=== PATIENT | female | born 1975 | race Caucasian/White ===

== ENCOUNTER 2016-04-13 10:18 | Emergency (ER) | payer MEDICAID ==
[2016-04-13] MEDS ORDERED: ACETAMINOPHEN 325 MG TABLET PO ONE (10:31)
--- NOTE | 2016-04-13 10:32 | ER Document Report ---
ED Medical Screen (RME) - General Chief Complaint: Foot Injury Stated Complaint: FOOT PAIN Notes: Alex lara is a 40-year-old female who says that her daughter stepped on her left foot last evening that she has pain and swelling in that foot and difficulty putting weight on that foot. Otherwise she denies any numbness or tingling in her feet has full range of motion of her toes and her ankle. I have greeted and performed a rapid initial assessment of this patient. A comprehensive ED assessment and evaluation of the patient, analysis of test results and completion of the medical decision making process will be conducted by additional ED providers. TRAVEL OUTSIDE OF THE [place] IN LAST 30 DAYS: No - Related Data Allergies/Adverse Reactions: latex [Latex] Allergy (Unknown, Verified 04/13/16 10:29) Penicillins Allergy (Unknown, Verified 04/13/16 10:29) aripiprazole [From Abilify] Adverse Reaction (Verified 04/13/16 10:29) Liquid Codeine Allergy (Uncoded 04/13/16 10:29) Past Medical History - Social History Chew tobacco use (# tins/day): No Frequency of alcohol use: None Drug Abuse: None Pulmonary Medical History: Reports: Hx Asthma Neurological Medical History: Reports: Hx Seizures - as a child Renal/ Medical History: Reports: Hx Kidney Stones. Denies: Hx Peritoneal Dialysis GI Medical History: Reports: Hx Irritable Bowel Psychiatric Medical History: Reports: Hx Anxiety, Hx Bipolar Disorder, Hx Post Traumatic Stress Disorder, Hx Schizoaffective Disorder Past Surgical History: Reports: Hx Hysterectomy - Immunizations Hx Diphtheria, Pertussis, Tetanus Vaccination: No Physical Exam - Vital signs Vitals: Temp Pulse Resp BP Pulse Ox 98.4 F 110 H 18 133/91 H 100 04/13/16 10:04/13/16 10:04/13/16 10:04/13/16 10:29 04/13/16 10:29 Course - Vital Signs Vital signs: Temp Pulse Resp BP Pulse Ox 98.4 F 110 H 18 133/91 H 100 04/13/16 10:29 04/13/16 10:04/13/16 10:04/13/16 10:29 04/13/16 10:29
--- NOTE | 2016-04-13 11:42 | ER Document Report ---
ED General - General Chief Complaint: Foot Injury Stated Complaint: FOOT PAIN Mode of Arrival: Wheelchair Information source: Patient Notes: 40-year-old female presents with complaints of left foot pain since last night. Patient notes her daughter stepped on her foot. Denies any other injuries. Denies any numbness weakness. Patient has been ambulating. TRAVEL OUTSIDE OF THE [place] IN LAST 30 DAYS: No - HPI Onset: Yesterday Onset/Duration: Sudden Quality of pain: Sharp Severity: Moderate Pain Level: 2 Associated symptoms: Other Exacerbated by: Walking Relieved by: Denies Similar symptoms previously: No Recently seen / treated by doctor: No - Related Data Allergies/Adverse Reactions: latex [Latex] Allergy (Unknown, Verified 04/13/16 10:29) Penicillins Allergy (Unknown, Verified 04/13/16 10:29) aripiprazole [From Abilify] Adverse Reaction (Verified 04/13/16 10:29) Liquid Codeine Allergy (Uncoded 04/13/16 10:29) Past Medical History - Social History Smoking Status: Never Smoker Cigarette use (# per day): No Chew tobacco use (# tins/day): No Smoking Education Provided: No Frequency of alcohol use: None Drug Abuse: None Family History: None, Reviewed & Not Pertinent Patient has suicidal ideation: No Patient has homicidal ideation: No Pulmonary Medical History: Reports: Hx Asthma Neurological Medical History: Reports: Hx Seizures - as a child Renal/ Medical History: Reports: Hx Kidney Stones. Denies: Hx Peritoneal Dialysis GI Medical History: Reports: Hx Irritable Bowel Psychiatric Medical History: Reports: Hx Anxiety, Hx Bipolar Disorder, Hx Post Traumatic Stress Disorder, Hx Schizoaffective Disorder Past Surgical History: Reports: Hx Hysterectomy, Hx Oral Surgery - Immunizations Hx Diphtheria, Pertussis, Tetanus Vaccination: No Review of Systems - Review of Systems Notes: REVIEW OF SYSTEMS: CONSTITUTIONAL : Denies fever, chills, or sweats. Denies recent illness. EENT: Denies eye, ear, throat, or mouth pain or symptoms. Denies nasal or sinus congestion or discharge. Denies throat, tongue, or mouth swelling or difficulty swallowing. CARDIOVASCULAR: Denies chest pain. Denies palpitations or racing or irregular heart beat. Denies ankle edema. RESPIRATORY: Denies cough, cold, or chest congestion. Denies shortness of breath, difficulty breathing, or wheezing. GASTROINTESTINAL: Denies abdominal pain or distention. Denies nausea, vomiting , or diarrhea. Denies blood in vomitus, stools, or per rectum. Denies black, tarry stools. Denies constipation. GENITOURINARY: Denies difficulty urinating, painful urination, burning, frequency, blood in urine, or discharge. FEMALE GENITOURINARY: Denies vaginal bleeding, heavy or abnormal periods, irregular periods. Denies vaginal discharge or odor. MUSCULOSKELETAL: admits ot left foot pain SKIN: Denies rash, lesions or sores. HEMATOLOGIC : Denies easy bruising or bleeding. LYMPHATIC: Denies swollen, enlarged glands. NEUROLOGICAL: Denies confusion or altered mental status. Denies passing out or loss of consciousness. Denies dizziness or lightheadedness. Denies headache. Denies weakness or paralysis or loss of use of either side. Denies problems with gait or speech. Denies sensory loss, numbness, or tingling. Denies seizures. PSYCHIATRIC: Denies anxiety or stress. Denies depression, suicidal ideation, or homicidal ideation. ALL OTHER SYSTEMS REVIEWED AND NEGATIVE. Dictation was performed using [employer] voice recognition software PHYSICAL EXAMINATION: GENERAL: Well-appearing, well-nourished and in no acute distress. HEAD: Atraumatic, normocephalic. EYES: Pupils equal round and reactive to light, extraocular movements intact, conjunctiva are normal. ENT: Nares patent, oropharynx clear without exudates. Moist mucous membranes. NECK: Normal range of motion, supple without lymphadenopathy LUNGS: Breath sounds clear to auscultation bilaterally and equal. No wheezes rales or rhonchi. HEART: Regular rate and rhythm without murmurs ABDOMEN: Soft, nontender, nondistended abdomen. No guarding, no rebound. No masses appreciated. Female : deferred Musculoskeletal: Normal range of motion, no pitting or edema. No cyanosis. NEUROLOGICAL: Cranial nerves grossly intact. Normal speech, normal gait. Normal sensory, motor exams PSYCH: Normal mood, normal affect. SKIN: echymoisis of the left foot 4th and 5th digits at the base , pt is able ot move her digits , sensation is in tact Physical Exam - Vital signs Vitals: Temp Pulse Resp BP Pulse Ox 98.4 F 110 H 18 133/91 H 100 04/13/16 10:29 04/13/16 10:29 04/13/16 10:29 04/13/16 10:29 04/13/16 10:29 Course - Re-evaluation Re-evalutation: 04/13/16 12:07 xray consistent withf racture, report and image given to patient, splint and crutches ordered pt otherwise stable for home, will [facility] ortho follow up in 1 week After performing a Medical Screening Examination, I estimate there is LOW risk for INTRACRANIAL HEMORRHAGE, UNSTABLE SPINE FRACTURE, CENTRAL CORD SYNDROME, CAUDA EQUINA, THORACIC AORTIC DISSECTION, PNEUMOTHORAX, PERFORATED BOWEL, RUPTURED ABDOMINAL AORTIC ANEURYSM, ACUTE TENDON RUPTURE, COMPARTMENT SYNDROME, or OPEN FRACTURE, thus I consider the discharge disposition reasonable. Also, there is no evidence or peritonitis, sepsis, or toxicity. The patient and I have discussed the diagnosis and risks, and we agree with discharging home to follow-up with their primary doctor with the understanding that symptoms and presentations can change. We also discussed returning to the Emergency Department immediately if new or worsening symptoms occur. We have discussed the symptoms which are most concerning (e.g., bloody stool, fever, changing or worsening pain, vomiting) that necessitate immediate return. - Vital Signs Vital signs: Temp Pulse Resp BP Pulse Ox 98.4 F 85 18 137/91 H 100 04/13/16 10:29 04/13/16 11:47 04/13/16 10:04/13/16 11:47 04/13/16 10:29 - Diagnostic Test Radiology reviewed: Image reviewed, Reports reviewed Discharge - Discharge Clinical Impression: Left foot pain Metatarsal bone fracture Qualifiers: Encounter type: initial encounter Metatarsal bone: fifth Fracture type: closed Fracture alignment: displaced Laterality: left Qualified Code(s): S92.352A - Displaced fracture of fifth metatarsal bone, left foot, initial encounter for closed fracture Condition: Stable Disposition: HOME, SELF-CARE Instructions: Foot Fracture ([facility]) Prescriptions: Oxycodone HCl/Acetaminophen [Percocet 5-325 mg Tablet] 1 - 2 tab PO Q4H PRN #15 tablet PRN Reason: Referrals: DEE STYLES MD [ACTIVE STAFF] - 04/21/16
[2016-04-13 11:48] VITALS: BP 137/91
== END 2016-04-13 12:24 | disposition home or self-care (01) ==
LOC: ER 10:18
DX: S92.352A Displaced fracture of fifth metatarsal bone, left foot, initial encounter for closed fracture (principal); M79.672 Pain in left foot; X58.XXXA Exposure to other specified factors, initial encounter
CPT/HCPCS: 99283; 73630; J3490

== ENCOUNTER 2016-05-12 06:49 | Emergency (ER) | payer MEDICAID ==
[2016-05-12] MEDS ORDERED: NORMAL SALINE 1000 ML 1,000 ML IV ONE ×2 (07:28→07:34)
[2016-05-12] MEDS ORDERED: ONDANSETRON HCL INJ/PF 4 MG/2 ML SDV IV ONE (07:29)
--- NOTE | 2016-05-12 07:33 | ER Document Report ---
ED Flu Like - General Chief Complaint: Flu Symptoms Stated Complaint: FLU LIKE SYMPTOMS Time seen by provider: 07:28 Mode of Arrival: Ambulatory Information source: Patient Notes: 40-year-old female presents to ED for nausea and vomiting for the last 3 days no stool except for very small miniscule stool yesterday insomnia body aches sweats and chills runny nose and cough. TRAVEL OUTSIDE OF THE [place] IN LAST 30 DAYS: No - HPI Onset: Other - 3 days Timing/Duration: Persistent Quality of pain: Cramping Severity: Severe Pain Level: 5 Associated symptoms: Body/muscle aches, Chills, Nonproductive cough, Fever, Nausea, Vomiting, Rhinnorhea, Sinus pain/drainage Similar symptoms previously: No Recently seen / treated by doctor: No - Related Data Allergies/Adverse Reactions: latex [Latex] Allergy (Unknown, Verified 04/13/16 10:29) Penicillins Allergy (Unknown, Verified 04/13/16 10:29) aripiprazole [From Abilify] Adverse Reaction (Verified 04/13/16 10:29) Liquid Codeine Allergy (Uncoded 04/13/16 10:29) Past Medical History - General Information source: Patient - Social History Smoking Status: Former Smoker - States she just quit a week ago this is 2016 Cigarette use (# per day): No Chew tobacco use (# tins/day): No Smoking Education Provided: No Frequency of alcohol use: Rare Drug Abuse: None, Marijuana Occupation: no Lives with: Spouse/Significant other Family History: Arthritis, CAD, COPD, CVA, DM, Hyperlipidemia, Hypertension, Malignancy Patient has suicidal ideation: No Patient has homicidal ideation: No - Past Medical History Cardiac Medical History: Reports: None Pulmonary Medical History: Reports: Hx Asthma EENT Medical History: Reports: None Neurological Medical History: Reports: Hx Seizures - as a child Endocrine Medical History: Reports: None Renal/ Medical History: Reports: Hx Kidney Stones, Hx Ovarian Cysts Malignancy Medical History: Reports: Hx Cervical Cancer - Precervical cancer GI Medical History: Reports: Hx Irritable Bowel Musculoskeltal Medical History: Reports Hx Arthritis, Reports Hx Musculoskeletal Trauma Skin Medical History: Reports None Psychiatric Medical History: Reports: Hx Anxiety, Hx Attention Deficit Hyperactivity Disorder, Hx Bipolar Disorder, Hx Post Traumatic Stress Disorder, Hx Schizoaffective Disorder Traumatic Medical History: Reports: Hx Fractures - Left foot Infectious Medical History: Reports: None Past Surgical History: Reports: Hx Adenoidectomy, Hx Section, Hx Hysterectomy - Partial, Hx Myringotomy, Hx Oral Surgery, Hx Tonsillectomy - Immunizations Hx Diphtheria, Pertussis, Tetanus Vaccination: No Review of Systems - Review of Systems Constitutional: Chills, Recent illness EENT: Nose discharge, Sinus discharge Cardiovascular: No symptoms reported Respiratory: Cough Gastrointestinal: Abdominal pain, Nausea, Vomiting, Constipation Genitourinary: No symptoms reported Female Genitourinary: No symptoms reported Musculoskeletal: Muscle pain Skin: No symptoms reported Hematologic/Lymphatic: No symptoms reported Neurological/Psychological: No symptoms reported -: Yes All other systems reviewed and negative Physical Exam - Vital signs Vitals: Temp Pulse Resp BP Pulse Ox 97.6 F 72 20 131/88 H 100 05/12/16 06:55 05/12/16 06:55 05/12/16 06:55 05/12/16 06:55 05/12/16 06:55 Interpretation: Normal - General General appearance: Appears well, Alert - HEENT Head: Normocephalic, Atraumatic Eyes: Normal Pupils: PERRL - Respiratory Respiratory status: No respiratory distress Chest status: Nontender Breath sounds: Normal Chest palpation: Normal - Cardiovascular Rhythm: Regular Heart sounds: Normal auscultation Murmur: No - Abdominal Inspection: Normal Distension: No distension Bowel sounds: Normal Tenderness: Tender - Generalized Organomegaly: No organomegaly - Back Back: Normal, Nontender - Extremities General upper extremity: Normal inspection, Nontender, Normal color, Normal ROM , Normal temperature General lower extremity: Normal inspection, Nontender, Normal color, Normal ROM , Normal temperature, Normal weight bearing. No: Joyce's sign - Neurological Neuro grossly intact: Yes Cognition: Normal Orientation: AAOx4 U[place]do Coma Scale Eye Opening: Spontaneous [place] Coma Scale Verbal: Oriented [place] Coma Scale Motor: Obeys Commands Uvaldo Coma Scale Total: 15 Speech: Normal Motor strength normal: LUE, RUE, LLE, RLE Sensory: Normal - Psychological Associated symptoms: Normal affect, Normal mood - Skin Skin Temperature: Warm Skin Moisture: Dry Skin Color: Normal Course - Re-evaluation Re-evalutation: 05/12/16 09:59 Patient taking fluids and food well. Has been taken water and soda and eating crackers. Assessment consistent with gastrointestinal murmurs we'll discharge home on Zofran. Patient was treated with mag citrate for her constipation before discharge. 05/12/16 10:[address] Pleitez concerning the abdominal pain that has not been relieved he stated was okay to go ahead and discharge the patient. - Vital Signs Vital signs: Temp Pulse Resp BP Pulse Ox 99.1 F 81 20 107/56 L 96 05/12/16 11:28 05/12/16 11:28 05/12/16 11:28 05/12/16 11:28 05/12/16 11:28 - Laboratory Result Diagrams: 05/12/16 07:48 05/12/16 07:48 Laboratory results interpreted by me: 05/12/16 05/12/16 05/12/16 07:48 07:48 07:48 WBC 13.2 H MCV 79 L MCH 26.4 L RDW 14.1 H Seg Neutrophils % 86.4 H Lymphocytes % 7.9 L Absolute Neutrophils 11.4 H Glucose 129 H Calcium 10.7 H Urine Protein 30 H Urine Ketones 20 H Urine Ascorbic Acid 40 H Discharge - Discharge Clinical Impression: Nausea & vomiting Qualifiers: Vomiting type: unspecified Vomiting Intractability: non-intractable Qualified Code(s): R11.2 - Nausea with vomiting, unspecified Abdominal pain Qualifiers: Abdominal location: generalized Qualified Code(s): R10.84 - Generalized abdominal pain Condition: Stable Disposition: HOME, SELF-CARE Instructions: Family Physicians / Practices Additional Instructions: ABDOMINAL PAIN: There are many causes of abdominal pain. Pain can mean a serious problem requiring surgery (such as appendicitis). It can also be an innocent problem that goes away on its own (such as a viral infection). Often, time must pass to determine the cause of pain. The physician does not feel that hospitalization is necessary, at present. Things may change within the next 24 hours. Call the doctor or come back for re- examination if any problems occur, such as: (1) Pain that becomes more severe, steady, or becomes concentrated in one specific area. Also, pain that is more severe with movement or coughing. (2) Vomiting that persists or becomes more frequent. (3) Blood in the vomitus, urine, or bowel movements. Blood in the stool may have a tarry or black appearance. (4) Shaking chills or fever greater than 100 degrees F. (5) The abdomen becomes more distended or swollen. (6) Bowel movements cease. (7) Failure to improve as expected. NORMAL EXAM AND WORKUP: At this time, your examination and workup show no significant abnormality. No significant abnormal physical findings are noted. All laboratory, EKG, and imaging (x-ray, CT scans, ultrasound) studies that were ordered show no significant abnormality. Although your examination and all studies that were ordered showed no significant abnormal finding, there are no examinations and no studies that are 100% accurate. There is always the possibility that some abnormality could exist and not be detected with physical examination or within the limits and capabilities of laboratory and other studies. You should return or follow up as you were instructed on your visit today for further evaluation if your symptoms do not resolve. ANT[place]AUSEA MEDICATION: You have been given a medication to suppress nausea and vomiting. This type of medication can be given as a shot, pill, or suppository. It will usually last for many hours. Pills and shots usually last six to eight hours, suppositories last about 12 hours. For the typical illness, only one or two doses of the medication may be necessary. Mild lightheadedness may occur. This type of medicine can cause drowsiness. Do not drive or operate dangerous machinery while under its influence. Do not mix with alcohol. See your doctor at once if you have muscle spasms or tightness, or uncontrollable motions (particularly of the neck, mouth, or jaw). Persistent vomiting or severe lightheadedness should also be evaluated by the physician. CONSTIPATION: Constipation is a common problem. It is especially likely as you get older. Constipation is a common cause of abdominal pain, but sometimes causes no symptoms at all. Causes of constipation include certain medications, dehydration, diets, inactivity, and low-fiber intake. Rarely, it can be a symptom of underlying disease. The physician has evaluated you for this. Avoid constipation by eating a diet high in fiber, fruits, and vegetables. Drink plenty of liquids. Get regular exercise. If possible, avoid constipating medicines like narcotic pain medication. Some vitamin tablets can cause constipation. Stool softeners may be needed for difficult cases. An excellent stool softener is Konsyl which is available at [employer], and [employer]. Just add a teaspoon to a glass of pineapple or orange juice daily or twice a day if needed. Laxatives are useful for occasional constipation. You should use them only when necessary. Too-frequent use can make your bowels dependent on them. Some over the counter laxatives available without prescription are: Milk of Magnesia, 1-2 tablespoons twice a day Dulcolax, 5 mg pill or 10 mg suppository. Citrate of Magnesia, 4-5 ounces a day for a day or two For acute constipation, Fleet's Enemas and Dulcolax suppositories are helpful. Chronic, long term care social worker use of laxatives or enemas is not a good idea. Your bowel may become dependant on them. You do not need to have a bowel movement every day. Many people do fine with a bowel movement every three or four days. You should call your doctor or return for re-evaluation if you pass blood in the stool, or if you develop fever or increasing abdominal pain. BULK LAXATIVES: Bulk laxatives make the stool softer and bulkier. They're useful for preventing constipation. You can choose between psyllium, methylcellulose, and polycarbophil. They are available without a prescription. Psyllium brand names include Konsyl, Metamucil, Perdiem, Effer-Syllium and Hydrocil. It's available as powder, flavored drink powder, or chewable. The usual dose of psyllium powder is one heaping teaspoon in water each morning, increasing to twice a day if needed. [place] juice can disguise the slightly grainy texture. Methylcellulose is marketed as Citrucel and other brands. The average dose is two grams in a cup of water one to three times a day. Polycarbophil is marketed as Fiber-Con. Take two tablets with a cup of water one to three times a day. LAXATIVE: A laxative agent has been prescribed for your condition. This should result in passage of stool within 12 hours. Some mild intestinal cramping is common as the hard stool begins to move. You may have loose or runny stools for a short time. Contact your doctor if there is severe cramping, vomiting, or passage of blood. Return for further care if this medicine fails to improve your condition. FOLLOW-UP CARE: If you have been referred to a physician for follow-up care, call the physician s office for an appointment as you were instructed or within the next two days. If you experience worsening or a significant change in your symptoms, notify the physician immediately or return to the Emergency Department at any time for re-evaluation. Prescriptions: Ondansetron [Zofran Odt 4 mg Tablet] 1 tab PO Q6H #15 tab.rapdis Forms: Elevated Blood Pressure, Return to Work
[2016-05-12 08:01] LABS: ABSOLUTE MONOCYTES (AUTO) 0.7 10^3/uL (0.1-1.4); ABSOLUTE NEUT (AUTO) 11.4 10^3/uL (1.7-8.2); BASOPHILS % (AUTO) 0.4 % (0-2); EOSINOPHILS % (AUTO) 0.1 % (0-6); HEMATOCRIT 41.6 % (36.0-47.0); HEMOGLOBIN 13.9 g/dL (12.0-15.5); HGB HCT DIFFERENCE 0.1; LYMPHOCYTES % (AUTO) 7.9 % (13-45); MEAN CORPUSCULAR HEMOGLOBIN 26.4 pg (27.0-33.4); MEAN CORPUSCULAR HGB CONC 33.4 g/dL (32.0-36.0); MEAN CORPUSCULAR VOLUME 79 fl (80-97); MONOCYTES % (AUTO) 5.2 % (3-13); RED BLOOD COUNT 5.25 10^6/uL (3.72-5.28); RED CELL DISTRIBUTION WIDTH 14.1 % (11.5-14.0); SEGMENTED NEUTROPHILS % (AUTO) 86.4 % (42-78); WHITE BLOOD COUNT 13.2 10^3/uL (4.0-10.5)
[2016-05-12 08:15] LABS: APPEARANCE,URINE SLIGHTLY-CLOUDY; BILIRUBIN,URINE NEGATIVE (NEGATIVE); GLUCOSE, URINE NEGATIVE (NEGATIVE); KETONES,URINE 20 mg/dL (NEGATIVE); LEUKOCYTE ESTERASE,URINE NEGATIVE (NEGATIVE); NITRITE,URINE NEGATIVE (NEGATIVE); PROTEIN,URINE 30 mg/dL (NEGATIVE); URINE SPECIFIC GRAVITY 1.028; UROBILINOGEN,URINE NEGATIVE mg/dL (<2.0)
[2016-05-12 08:23] LABS: ALANINE AMINOTRANSFERASE 36 U/L (9-52); ALBUMIN 4.9 g/dL (3.5-5.0); ALKALINE PHOSPHATASE 112 U/L (38-126); ANION GAP 16 (5-19); ASPARTATE AMINO TRANSFERASE 28 U/L (14-36); BILIRUBIN,TOTAL 0.6 mg/dL (0.2-1.3); BLOOD UREA NITROGEN 11 mg/dL (7-20); CALCIUM 10.7 mg/dL (8.4-10.2); CARBON DIOXIDE 25 mmol/L (22-30); CHLORIDE 102 mmol/L (98-107); CREATININE RESULT 0.63 mg/dL (0.52-1.25); GLUCOSE 129 mg/dL (75-110); POTASSIUM 4.1 mmol/L (3.6-5.0)
[2016-05-12] MEDS ORDERED: PROCHLORPERAZINE EDISYLATE INJ 10 MG/2 ML VIAL IV ONE (08:39)
[2016-05-12] MEDS ORDERED: DIPHENHYDRAMINE HCL 50 MG/ML VIAL IV ONE (08:39)
[2016-05-12] MEDS ORDERED: MAGNESIUM CITRATE 296 ML BOTTLE PO ONE (10:05)
[2016-05-12 11:29] VITALS: BP 107/56
== END 2016-05-12 11:29 | disposition home or self-care (01) ==
LOC: ER 06:49
DX: R11.2 Nausea with vomiting, unspecified (principal); R10.84 Generalized abdominal pain; M79.1 Myalgia; R50.9 Fever, unspecified; Z91.040 Latex allergy status; Z88.0 Allergy status to penicillin; Z87.891 Personal history of nicotine dependence; Z87.442 Personal history of urinary calculi; Z85.41 Personal history of malignant neoplasm of cervix uteri; Z90.710 Acquired absence of both cervix and uterus
CPT/HCPCS: 99283; 96361; 96374; 96375; 36415; 84703; 85025; 80053; 81001; 87804; J3490; J1200; J0780; J2405; J7030

== ENCOUNTER 2017-02-14 04:11 | Emergency (ER) | payer MEDICAID ==
[2017-02-14] MEDS ORDERED: DEXAMETHASONE SOD PHOS INJ 10 MG/1 ML VIAL IM ONE (04:56)
[2017-02-14] MEDS ORDERED: DIAZEPAM 5 MG TABLET PO ONE (04:56)
[2017-02-14] MEDS ORDERED: KETOROLAC TROMETHAMINE INJ/PF 30 MG/1 ML SDV IM ONE (04:56)
[2017-02-14] MEDS ORDERED: ONDANSETRON HCL 8 MG TABLET PO ONE (04:56)
--- NOTE | 2017-02-14 05:01 | ER Document Report ---
HPI - HPI Pain Level: 5 Notes: Patient is a 41-year-old female with a history of chronic back pain, scoliosis who presents ED complaining of acute exacerbation of her low back pain without any known injury. Patient states that she was evaluated by her primary care doctor today who sent her home with a prescription for Flexeril, but she was unable to fill it. Patient states that the pain is primarily to the lower back , but radiates up the right side of her back up towards her neck. Patient states that when the pain gets to its worse she develops nausea and vomiting. She is otherwise eating and drinking without difficulties. She is still urinating normally and having normal bowel movements. Patient states that her back pain feels like muscle spasming as well. Patient denies any procedures or injections into her back. She denies any other significant past medical history including diabetes. Patient denies any smoking or IV drug use. Denies any headache, fever, neck pain, URI, sore throat, chest pain, palpitations, syncope, cough, shortness of breath, wheeze, dyspnea, abdominal pain, diarrhea, urinary retention, dysuria, hematuria, loss of control of bowel or bladder, numbness/tingling, saddle anesthesia, muscle paralysis/weakness, or rash. - ROS Notes: REVIEW OF SYSTEMS: CONSTITUTIONAL : Denies fever, chills, or sweats. Denies recent illness. EENT: Denies eye, ear, throat, or mouth pain or symptoms. Denies nasal or sinus congestion or discharge. Denies throat, tongue, or mouth swelling or difficulty swallowing. CARDIOVASCULAR: Denies chest pain. Denies palpitations or racing or irregular heart beat. Denies ankle edema. RESPIRATORY: Denies cough, cold, or chest congestion. Denies shortness of breath, difficulty breathing, or wheezing. GASTROINTESTINAL: Denies abdominal pain or distention. see hpi. Denies blood in vomitus, stools, or per rectum. Denies black, tarry stools. Denies constipation. GENITOURINARY: Denies difficulty urinating, painful urination, burning, frequency, blood in urine, or discharge. MUSCULOSKELETAL: see hpi SKIN: Denies rash, lesions or sores. NEUROLOGICAL: Denies confusion or altered mental status. Denies passing out or loss of consciousness. Denies dizziness or lightheadedness. Denies headache. Denies weakness or paralysis or loss of use of either side. Denies problems with gait or speech. Denies sensory loss, numbness, or tingling. Denies seizures. PSYCHIATRIC: Denies anxiety or stress. Denies depression, suicidal ideation, or homicidal ideation. ALL OTHER SYSTEMS REVIEWED AND NEGATIVE. Dictation was performed using [employer] voice recognition software - REPRODUCTIVE Reproductive: DENIES: : Past Medical History - Social History Smoking Status: Never Smoker Family History: Arthritis, CAD, COPD, CVA, DM, Hyperlipidemia, Hypertension, Malignancy Pulmonary Medical History: Reports: Hx Asthma Neurological Medical History: Reports: Hx Seizures - as a child Renal/ Medical History: Reports: Hx Kidney Stones, Hx Ovarian Cysts. Denies: Hx Peritoneal Dialysis Malignancy Medical History: Reports: Hx Cervical Cancer - Precervical cancer GI Medical History: Reports: Hx Irritable Bowel Musculoskeltal Medical History: Reports Hx Arthritis, Reports Hx Musculoskeletal Trauma Psychiatric Medical History: Reports: Hx Anxiety, Hx Attention Deficit Hyperactivity Disorder, Hx Bipolar Disorder, Hx Post Traumatic Stress Disorder, Hx Schizoaffective Disorder Traumatic Medical History: Reports: Hx Fractures - Left foot Past Surgical History: Reports: Hx Adenoidectomy, Hx Section, Hx Hysterectomy - Partial, Hx Myringotomy, Hx Oral Surgery, Hx Tonsillectomy - Immunizations Hx Diphtheria, Pertussis, Tetanus Vaccination: No Vertical Provider Document - CONSTITUTIONAL Agree With Documented VS: Yes Notes: PHYSICAL EXAMINATION: GENERAL: Well-appearing, well-nourished and in no acute distress. A&Ox4 NECK: Normal range of motion, supple without lymphadenopathy. No rigidity. No midline tenderness. LUNGS: Breath sounds clear to auscultation bilaterally and equal. No wheezes rales or rhonchi. HEART: Regular rate and rhythm without murmurs, rubs, gallops. ABDOMEN: Soft, nontender, nondistended abdomen. No guarding, no rebound. No masses appreciated. Normal bowel sounds present. No CVA tenderness bilaterally. No pulsatile mass. Musculoskeletal: LE's b/l: FROM to passive/active. Strength 5+/5. No deficits noted. No bony tenderness of extremities. Back: LROM to passive/active to flexion. Strength 5+/5. No vertebral point tenderness, stepoffs, erythema, or deformities. No other bony tenderness or ecchymosis. SLR negative b/l. + tenderness to the L and T-paraspinal mm and rt SI jt. Extremities: No cyanosis, clubbing, or edema b/l. Peripheral pulses 2+. Capillary refill less than 2 seconds. NEUROLOGICAL: Normal speech, ataxic gait. Normal sensory, motor exams. Reflexes 2+ b/l. PSYCH: Normal mood, normal affect. SKIN: Warm, Dry, normal turgor, no rashes or lesions noted. - INFECTION CONTROL TRAVEL OUTSIDE OF THE [place] IN LAST 30 DAYS: No - RESPIRATORY O2 Sat by Pulse Oximetry: 100 Course - Re-evaluation Re-evalutation: 02/14/17 05:01 Patient is an afebrile, well-hydrated, 41-year-old female who presents the ED with acute exacerbation of chronic back pain, suspect back strain and muscle spasming. Vitals are stable. PE is otherwise unremarkable for any focal neurological deficits. No labs or imaging warranted at this time. Patient reports already having a workup performed with her primary care provider yesterday that was relatively unremarkable. Low suspicion for any meningitis, fracture, expanding/ruptured AAA, cauda equina syndrome, epidural mass lesion/ abscess, herniated disc causing severe spinal stenosis, or other systemic infection at this time. Patient is aware that his condition can change from initial presentation and that he needs monitor symptoms closely for any acute changes. Toradol 30 mg, Decadron 10 mg, and Valium 5 mg given today for symptoms. I will send her home with a prescription for Zofran. Recommend patient fill her prescription for her Flexeril. Conservative measures otherwise for symptoms. Recheck with your PCM this week. Consider consult orthopedics/physical therapy for ongoing/worsening symptoms. Return to the ED with any worsening/concerning symptoms otherwise as reviewed in discharge. Patient is in agreement. - Vital Signs Vital signs: Temp Pulse Resp BP Pulse Ox 97.9 F 78 18 144/91 H 100 02/14/17 04:21 02/14/17 04:21 02/14/17 04:21 02/14/17 04:21 02/14/17 04:21 Discharge - Discharge Clinical Impression: Low back strain Qualifiers: Encounter type: initial encounter Qualified Code(s): S39.012A - Strain of muscle, fascia and tendon of lower back, initial encounter Condition: Stable Disposition: HOME, SELF-CARE Instructions: Low Back Pain ([facility]), Muscle Strain ([facility]), Warm Packs ([facility]), Ice Packs ([facility]), Stretching Exercises for the Back ([facility]), Antinausea Medication ([facility] ) Additional Instructions: Rest, Ice Tylenol/ibuprofen as needed Light stretches daily Strength exercises as able Moist heat and massage may help F/u with your PCP in this week for a recheck Consider consult(s) with Orthopedics/physical therapy for ongoing/worsening symptoms Return to the ED with any worsening symptoms and/or development of fever, headache, chest pain, palpitations, syncope, shortness of breath, trouble breathing, abdominal pain, n/v/d, blood in stool/urine, loss of control of bowel /bladder, urinary retention, muscle weakness/paralysis, saddle anesthesia, numbness/tingling, or other worsening symptoms that are concerning to you. Prescriptions: Ondansetron [Zofran Odt 4 mg Tablet] 1 - 2 tab PO Q4H PRN #15 tab.rapdis PRN Reason: For Nausea/Vomiting Forms: Elevated Blood Pressure Referrals: [facility] [Provider Group] - Follow up as needed SUELLEN OLMEDO PA-C [PHYSICIAN CURRICULUM ASSISTANT] - 02/16/17
[2017-02-14 06:00] VITALS: BP 120/78
== END 2017-02-14 05:59 | disposition home or self-care (01) ==
LOC: ER 04:11
DX: S39.012A Strain of muscle, fascia and tendon of lower back, initial encounter (principal); M54.5 Low back pain; M54.9 Dorsalgia, unspecified; G89.29 Other chronic pain; X58.XXXA Exposure to other specified factors, initial encounter
CPT/HCPCS: 99283; 96372; 96374; J3490; J1885; S0119; J1100

== ENCOUNTER 2017-08-12 06:37 | Emergency (ER) | payer MEDICAID ==
[2017-08-12 06:44] VITALS: BP 124/76
[2017-08-12] MEDS ORDERED: PREDNISONE 20 MG TABLET PO ONE (06:51)
[2017-08-12] MEDS ORDERED: FAMOTIDINE 20 MG TABLET PO ONE (06:51)
--- NOTE | 2017-08-12 06:52 | ER Document Report ---
ED General - General Chief Complaint: Allergic Reaction Stated Complaint: EYE SWELLING Time Seen by Provider: 08/12/17 06:44 Mode of Arrival: Ambulatory Information source: Patient Notes: 41-year-old female presents with complaints of facial swelling itching. Patient notes she was doing yard work felt something sting her 2 days ago that the area of redness has since enlarged. Patient has taken Benadryl with no improvement of symptoms. She denies any fevers or chills she denies any pain she denies any warmth to touch TRAVEL OUTSIDE OF THE [place] IN LAST 30 DAYS: No - HPI Onset: Other - 2 day duration Onset/Duration: Worse Quality of pain: No pain Severity: Mild Pain Level: Denies Associated symptoms: Other - Itching Exacerbated by: Denies Relieved by: Denies Similar symptoms previously: No Recently seen / treated by doctor: No - Related Data Allergies/Adverse Reactions: latex [Latex] Allergy (Unknown, Verified 08/12/17 06:38) Penicillins Allergy (Unknown, Verified 08/12/17 06:38) aripiprazole [From Abilify] Adverse Reaction (Verified 08/12/17 06:38) Liquid Codeine Allergy (Uncoded 08/12/17 06:38) Past Medical History - Social History Smoking Status: Unknown if Ever Smoked Cigarette use (# per day): No Chew tobacco use (# tins/day): No Smoking Education Provided: No Family History: Arthritis, CAD, COPD, CVA, DM, Hyperlipidemia, Hypertension, Malignancy Pulmonary Medical History: Reports: Hx Asthma Neurological Medical History: Reports: Hx Seizures - as a child Renal/ Medical History: Reports: Hx Kidney Stones, Hx Ovarian Cysts. Denies: Hx Peritoneal Dialysis Malignancy Medical History: Reports: Hx Cervical Cancer - Precervical cancer GI Medical History: Reports: Hx Irritable Bowel Musculoskeltal Medical History: Reports Hx Arthritis, Reports Hx Musculoskeletal Trauma Psychiatric Medical History: Reports: Hx Anxiety, Hx Attention Deficit Hyperactivity Disorder, Hx Bipolar Disorder, Hx Post Traumatic Stress Disorder, Hx Schizoaffective Disorder Traumatic Medical History: Reports: Hx Fractures - Left foot Past Surgical History: Reports: Hx Adenoidectomy, Hx Section, Hx Hysterectomy - Partial, Hx Myringotomy, Hx Oral Surgery, Hx Tonsillectomy - Immunizations Hx Diphtheria, Pertussis, Tetanus Vaccination: No Review of Systems - Review of Systems Notes: REVIEW OF SYSTEMS: CONSTITUTIONAL : Denies fever, chills, or sweats. Denies recent illness. EENT: Denies eye, ear, throat, or mouth pain or symptoms. Denies nasal or sinus congestion or discharge. Denies throat, tongue, or mouth swelling or difficulty swallowing. CARDIOVASCULAR: Denies chest pain. Denies palpitations or racing or irregular heart beat. Denies ankle edema. RESPIRATORY: Denies cough, cold, or chest congestion. Denies shortness of breath, difficulty breathing, or wheezing. GASTROINTESTINAL: Denies abdominal pain or distention. Denies nausea, vomiting , or diarrhea. Denies blood in vomitus, stools, or per rectum. Denies black, tarry stools. Denies constipation. GENITOURINARY: Denies difficulty urinating, painful urination, burning, frequency, blood in urine, or discharge. FEMALE GENITOURINARY: Denies vaginal bleeding, heavy or abnormal periods, irregular periods. Denies vaginal discharge or odor. MUSCULOSKELETAL: Denies back or neck pain or stiffness. Denies joint pain or swelling. SKIN: Rash around face HEMATOLOGIC : Denies easy bruising or bleeding. LYMPHATIC: Denies swollen, enlarged glands. NEUROLOGICAL: Denies confusion or altered mental status. Denies passing out or loss of consciousness. Denies dizziness or lightheadedness. Denies headache. Denies weakness or paralysis or loss of use of either side. Denies problems with gait or speech. Denies sensory loss, numbness, or tingling. Denies seizures. PSYCHIATRIC: Denies anxiety or stress. Denies depression, suicidal ideation, or homicidal ideation. ALL OTHER SYSTEMS REVIEWED AND NEGATIVE. PHYSICAL EXAMINATION: GENERAL: Well-appearing, well-nourished and in no acute distress. HEAD: Atraumatic, normocephalic. EYES: Pupils equal round and reactive to light, extraocular movements intact, conjunctiva are normal. ENT: Nares patent, oropharynx clear without exudates. Moist mucous membranes. NECK: Normal range of motion, supple without lymphadenopathy LUNGS: Breath sounds clear to auscultation bilaterally and equal. No wheezes rales or rhonchi. No coarse breath sounds were noted HEART: Regular rate and rhythm without murmurs ABDOMEN: Soft, nontender, nondistended abdomen. No guarding, no rebound. No masses appreciated. Female : deferred Musculoskeletal: Normal range of motion, no pitting or edema. No cyanosis. NEUROLOGICAL: Cranial nerves grossly intact. Normal speech, normal gait. Normal sensory, motor exams PSYCH: Normal mood, normal affect. SKIN: There is a light pink erythematous rash of the left cheek around the left orbit across the bridge of the nose to the right cheek there is no involvement of the conjunctiva there is mild swelling and edema of the upper and lower eyelids on the left, it is nontender to touch Dictation was performed using [employer] voice recognition software Physical Exam - Vital signs Vitals: Temp Pulse Resp BP Pulse Ox 98.0 F 87 20 124/76 98 08/12/17 06:42 08/12/17 06:42 08/12/17 06:42 08/12/17 06:42 08/12/17 06:42 Course - Re-evaluation Re-evalutation: 08/12/17 06:58 My initial concern was for orbital versus periorbital cellulitis, but the patient is insistent that it itches at there is no pain no fevers, therefore I will treat as an allergic reaction with understand if her symptoms do continue to worsen if any of the symptoms do arise that she would need immediate medical attention. Patient is happy with this plan There is no airway involvement she is otherwise well-appearing no distress After performing a Medical Screening Examination, I estimate there is LOW risk for AIRWAY COMPROMISE, ANAPHYLAXIS, CELLULITIS, EPIGLOTTIS, or NECROTIZING FASCIITIS, thus I consider the discharge disposition reasonable. Also, there is no evidence or peritonitis, sepsis, or toxicity. I have reevaluated this patient multiple times and no significant life threatening changes are noted. The patient and I have discussed the diagnosis and risks, and we agree with discharging home with close follow-up with the understanding that symptoms and presentations can change. We also discussed returning to the Emergency Department immediately if new or worsening symptoms occur. We have discussed the symptoms which are most concerning (e.g., difficulty breathing or swallowing , fever, changing or worsening pain) that necessitate immediate return. - Vital Signs Vital signs: Temp Pulse Resp BP Pulse Ox 98.0 F 87 20 124/76 98 08/12/17 06:42 08/12/17 06:42 08/12/17 06:42 08/12/17 06:42 08/12/17 06:42 Discharge - Discharge Clinical Impression: Allergic reaction Qualifiers: Encounter type: initial encounter Qualified Code(s): T78.40XA - Allergy, unspecified, initial encounter Orbital edema Qualifiers: Laterality: left Qualified Code(s): H05.222 - Edema of left orbit Condition: Stable Disposition: HOME, SELF-CARE Instructions: Acute Allergic Reaction ([facility]) Prescriptions: Epinephrine [Epipen] 0.3 mg IM ASDIR PRN #1 auto.injct PRN Reason: Famotidine [Pepcid 40 mg Tablet] 40 mg PO DAILY #5 tablet Prednisone [Deltasone 20 mg Tablet] 3 tab PO DAILY 4 Days tablet Referrals: SUELLEN OLMEDO PA-C [Primary Care Provider] - Follow up tomorrow
== END 2017-08-12 07:19 | disposition home or self-care (01) ==
LOC: ER 06:37
DX: T78.40XA Allergy, unspecified, initial encounter (principal); R21 Rash and other nonspecific skin eruption; L29.8 Other pruritus; H05.222 Edema of left orbit; H02.845 Edema of left lower eyelid; H02.844 Edema of left upper eyelid; X58.XXXA Exposure to other specified factors, initial encounter; J45.909 Unspecified asthma, uncomplicated; Z91.040 Latex allergy status; Z88.0 Allergy status to penicillin; Z88.5 Allergy status to narcotic agent
CPT/HCPCS: 99283; J3490; J7512

== ENCOUNTER 2018-05-28 00:26 | Observation (INO) | payer MEDICAID ==
[2018-05-28] MEDS ORDERED: FENTANYL CITRATE INJ/PF 100 MCG/2 ML AMPUL IV ONE (00:41)
[2018-05-28] MEDS ORDERED: ONDANSETRON HCL INJ/PF 4 MG/2 ML SDV IV ONE (00:41)
--- NOTE | 2018-05-28 00:45 | ER Document Report ---
ED Medical Screen (RME) - General Chief Complaint: Abdominal Pain Stated Complaint: VOMITING Time Seen by Provider: 05/28/18 00:39 Primary Care Provider: SUELLEN OLMEDO PA-C [Primary Care Provider] - Follow up as needed Notes: RUQ pain and vomiting, h/o gallstones w/ apt on to see surgery in [place]. actively vomiting in triage. I have greeted and performed a rapid initial assessment of this patient. A comp rehensive ED assessment and evaluation of the patient, analysis of test results and completion of the medical decision making process will be conducted by additional ED providers. TRAVEL OUTSIDE OF THE [place] IN LAST 30 DAYS: No - Related Data Allergies/Adverse Reactions: latex [Latex] Allergy (Unknown, Verified 08/12/17 06:38) Penicillins Allergy (Unknown, Verified 08/12/17 06:38) aripiprazole [From Abilify] Adverse Reaction (Verified 08/12/17 06:38) Liquid Codeine Allergy (Uncoded 08/12/17 06:38) Past Medical History Pulmonary Medical History: Reports: Hx Asthma Neurological Medical History: Reports: Hx Seizures - as a child Renal/ Medical History: Reports: Hx Kidney Stones, Hx Ovarian Cysts. Denies: Hx Peritoneal Dialysis Malignancy Medical History: Reports: Hx Cervical Cancer - Precervical cancer GI Medical History: Reports: Hx Irritable Bowel Musculoskeltal Medical History: Reports Hx Arthritis, Reports Hx Musculoskeletal Trauma Psychiatric Medical History: Reports: Hx Anxiety, Hx Attention Deficit Hyperactivity Disorder, Hx Bipolar Disorder, Hx Post Traumatic Stress Disorder, Hx Schizoaffective Disorder Traumatic Medical History: Reports: Hx Fractures - Left foot Past Surgical History: Reports: Hx Adenoidectomy, Hx Section, Hx Hysterectomy - Partial, Hx Myringotomy, Hx Oral Surgery, Hx Tonsillectomy - Immunizations Hx Diphtheria, Pertussis, Tetanus Vaccination: No Doctor's Discharge - Discharge Referrals: SUELLEN OLMEDO PA-C [Primary Care Provider] - Follow up as needed
[2018-05-28 01:51] LABS: ABSOLUTE LYMPHOCYTES (AUTO) 1.7 10^3/uL (0.5-4.7); ABSOLUTE MONOCYTES (AUTO) 0.4 10^3/uL (0.1-1.4); BASOPHILS % (AUTO) 0.3 % (0-2); EOSINOPHILS % (AUTO) 0.1 % (0-6); HEMATOCRIT 40.5 % (36.0-47.0); HEMOGLOBIN 13.5 g/dL (12.0-15.5); MEAN CORPUSCULAR HEMOGLOBIN 26.7 pg (27.0-33.4); MEAN CORPUSCULAR HGB CONC 33.4 g/dL (32.0-36.0); MEAN CORPUSCULAR VOLUME 80 fl (80-97); MONOCYTES % (AUTO) 2.9 % (3-13); PLATELET COUNT 315 10^3/uL (150-450); RED BLOOD COUNT 5.07 10^6/uL (3.72-5.28); RED CELL DISTRIBUTION WIDTH 14.1 % (11.5-14.0); SEGMENTED NEUTROPHILS % (AUTO) 84.7 % (42-78); TOTAL CELLS COUNTED % (AUTO) 100 %; WHITE BLOOD COUNT 14.2 10^3/uL (4.0-10.5)
[2018-05-28] MEDS ORDERED: HYDROMORPHONE HCL INJ/PF 2 MG/ML AMPULE IV ONE ×2 (02:10→04:06)
[2018-05-28] MEDS ORDERED: PROMETHAZINE HCL INJ 25 MG/1 ML VIAL IV ONE (02:10)
[2018-05-28 02:11] LABS: ALANINE AMINOTRANSFERASE 31 U/L (9-52); ALBUMIN 4.8 g/dL (3.5-5.0); ALKALINE PHOSPHATASE 97 U/L (38-126); ANION GAP 15 (5-19); ASPARTATE AMINO TRANSFERASE 28 U/L (14-36); BILIRUBIN,DIRECT 0.1 mg/dL (0.0-0.4); BILIRUBIN,TOTAL 0.3 mg/dL (0.2-1.3); BLOOD UREA NITROGEN 17 mg/dL (7-20); CALCIUM 10.7 mg/dL (8.4-10.2); CARBON DIOXIDE 22 mmol/L (22-30); CHLORIDE 104 mmol/L (98-107); GLUCOSE 135 mg/dL (75-110); LIPASE 69.4 U/L (23-300); POTASSIUM 4.2 mmol/L (3.6-5.0)
[2018-05-28] MEDS ORDERED: RINGERS SOLUTION,LACTATED 1,000 ML IV ONE ×2 (02:13→03:20)
--- NOTE | 2018-05-28 02:35 | RADIOLOGY REPORT (SQ) ---
EXAM DESCRIPTION: US ABDOMEN DOPPLER LIMITED COMPLETED DATE/TME: 05/28/2018 00:40 CLINICAL HISTORY: 42 years, Female, RUQ pain COMPARISON: None. TECHNIQUE: LIMITATIONS: None. FINDINGS: There are multiple gallstones. The research technologist reported a positive sonographic Aguiar sign. Findings are compatible with cholecystitis. No evidence of gallbladder wall thickening or pericholecystic fluid. No evidence of biliary tree dilatation. The liver is hyperechogenic, compatible with fatty infiltration. The right kidney is unremarkable. The pancreas was not well visualized. IMPRESSION: Cholecystitis. Fatty liver. copyright 2010 [facility] [employer]- All Rights Reserved
[2018-05-28] MEDS ORDERED: IMIPENEM/CILASTATIN SODIUM INJ 500 MG VIAL IV ONE (03:00)
[2018-05-28 03:18] LABS: APPEARANCE,URINE SLIGHTLY-CLOUDY; BILIRUBIN,URINE NEGATIVE (NEGATIVE); COLOR,URINE YELLOW; GLUCOSE, URINE NEGATIVE (NEGATIVE); KETONES,URINE 80 mg/dL (NEGATIVE); LEUKOCYTE ESTERASE,URINE NEGATIVE (NEGATIVE); NITRITE,URINE NEGATIVE (NEGATIVE); PROTEIN,URINE 30 mg/dL (NEGATIVE); URINE SPECIFIC GRAVITY 1.028; UROBILINOGEN,URINE NEGATIVE mg/dL (<2.0)
[2018-05-28] MEDS ORDERED: METOCLOPRAMIDE HCL INJ/PF 10 MG/2 ML SDV IV ONE ×2 (03:39→13:15)
--- NOTE | 2018-05-28 05:58 | ER Document Report ---
ED GI/ - General Chief Complaint: Abdominal Pain Stated Complaint: VOMITING Time Seen by Provider: 05/28/18 00:39 Notes: Patient is a 42-year-old female presents to the emergency department for right upper quadrant pain, nausea, vomiting. Patient states she has a history of gallstones and is scheduled to see a surgeon in [place] this coming week for elective gallbladder removal. Patient states the pain had gotten so severe and her vomiting had become so intense she had presented to the emergency room. Patient states she does take oxycodone for chronic lower back pain. TRAVEL OUTSIDE OF THE [place] IN LAST 30 DAYS: No - Related Data Allergies/Adverse Reactions: latex [Latex] Allergy (Unknown, Verified 08/12/17 06:38) Penicillins Allergy (Unknown, Verified 08/12/17 06:38) aripiprazole [From Abilify] Adverse Reaction (Verified 08/12/17 06:38) Liquid Codeine Allergy (Uncoded 08/12/17 06:38) Past Medical History - General Information source: Patient - Social History Smoking Status: Unknown if Ever Smoked Family History: Arthritis, CAD, COPD, CVA, DM, Hyperlipidemia, Hypertension, Malignancy Patient has suicidal ideation: No Patient has homicidal ideation: No Pulmonary Medical History: Reports: Hx Asthma Neurological Medical History: Reports: Hx Seizures - as a child Renal/ Medical History: Reports: Hx Kidney Stones, Hx Ovarian Cysts. Denies: Hx Peritoneal Dialysis Malignancy Medical History: Reports: Hx Cervical Cancer - Precervical cancer GI Medical History: Reports: Hx Irritable Bowel Musculoskeletal Medical History: Reports Hx Arthritis, Reports Hx Musculoskeletal Trauma Psychiatric Medical History: Reports: Hx Anxiety, Hx Attention Deficit Hyperactivity Disorder, Hx Bipolar Disorder, Hx Post Traumatic Stress Disorder, Hx Schizoaffective Disorder Traumatic Medical History: Reports: Hx Fractures - Left foot Past Surgical History: Reports: Hx Adenoidectomy, Hx Section, Hx Hysterectomy - Partial, Hx Myringotomy, Hx Oral Surgery, Hx Tonsillectomy - Immunizations Hx Diphtheria, Pertussis, Tetanus Vaccination: No Review of Systems - Review of Systems Constitutional: denies: Fever EENT: No symptoms reported Cardiovascular: No symptoms reported Respiratory: No symptoms reported Gastrointestinal: See HPI Genitourinary: No symptoms reported Female Genitourinary: No symptoms reported Musculoskeletal: No symptoms reported Skin: No symptoms reported Hematologic/Lymphatic: No symptoms reported Neurological/Psychological: No symptoms reported Physical Exam - Vital signs Vitals: Temp Pulse Resp BP Pulse Ox 98.1 F 97 25 H 148/81 H 100 05/28/18 00:43 05/28/18 00:43 05/28/18 00:43 05/28/18 00:43 05/28/18 00:43 - Notes Notes: GENERAL: Alert, interacts well. Actively vomiting bile HEAD: Normocephalic, atraumatic. EYES: Pupils equal, round, and reactive to light. Extraocular movements intact. ENT: Oral mucosa moist, tongue midline. NECK: Full range of motion. Supple. Trachea midline. LUNGS: Clear to auscultation bilaterally, no wheezes, rales, or rhonchi. No respiratory distress. HEART: Tachycardic rate and rhythm. No murmur ABDOMEN: Morbidly obese soft. Non-distended. Bowel sounds present in all 4 quadrants. Positive Aguiar sign noted, no McBurney's point tenderness noted. EXTREMITIES: Moves all 4 extremities spontaneously. No edema, normal radial and dorsalis pedis pulses bilaterally. No cyanosis. BACK: no cervical, thoracic, lumbar midline tenderness. No saddle anesthesia, normal distal neurovascular exam. NEUROLOGICAL: Alert and oriented x3. Normal speech. cranial nerves II through XII grossly intact PSYCH: Normal affect, normal mood. SKIN: Warm, dry, normal turgor. No rashes or lesions noted. Course - Re-evaluation Re-evalutation: 05/28/18 05:57 Discussed this case with surgical asked Dr. Funk. Patient does have a leukocytosis of 14.2 and ultrasound shows signs of cholecystitis. He states he will come to the emergency department to evaluate the patient. - Vital Signs Vital signs: Temp Pulse Resp BP Pulse Ox 97.9 F 92 17 142/75 H 95 05/28/18 08:16 05/28/18 08:16 05/28/18 08:16 05/28/18 08:16 05/28/18 08:16 - Laboratory Result Diagrams: 05/28/18 01:30 05/28/18 01:30 Laboratory results interpreted by me: 05/28/18 05/28/18 05/28/18 01:30 01:30 03:02 WBC 14.2 H MCH 26.7 L RDW 14.1 H Seg Neutrophils % 84.7 H Lymphocytes % 12.0 L Monocytes % 2.9 L Absolute Neutrophils 12.0 H Glucose 135 H Calcium 10.7 H Urine Protein 30 H Urine Ketones 80 H Urine Ascorbic Acid 40 H Discharge - Discharge Clinical Impression: Cholecystitis Condition: Stable Disposition: ADMITTED OBSERVATION Admitting Provider: Surgicalist - Dr. Funk Unit Admitted: Surgical Floor
--- NOTE | 2018-05-28 07:21 | PDOC H&P ---
History of Present Illness Admission Date/PCP: 05/28/18 06:23 Patient complains of: Abdominal pain History of Present Illness: FRANCA LARSON is a 42 year old female Presents the emergency department complaining of acute superimposed on chronic abdominal pain. Patient has a history of IBS, and is been followed on an outpatient basis by property management coordinator, Dr. Jett. She is undergone upper and lower endoscopy with removal of colonic polyps. She has had a outpatient gallbladder ultrasonography performed at [facility] several months ago which revealed gallstones. She was referred to a surgeon in [place] but did not follow-up yet. She is down the emergency department complaining of right upper quadrant abdominal pain, postprandial, associated nausea and vomiting. Repeat gallbladder ultrasound in the emergency department revealed gallstones Without comment on the diameter of her common bile duct. Liver function studies within normal limits. Surgery was consulted, because of exacerbation of abdominal pain, she was advised admission and definitive management. Past Medical History Past Medical History: Irritable bowel syndrome, chronic pain syndrome secondary to back problems, borderline diabetes, borderline hypertension. Obesity. Pulmonary Medical History: Reports: Asthma Neurological Medical History: Reports: Seizures - as a child Malignancy Medical History: Reports: Cervical Cancer - Precervical cancer Musculoskeltal Medical History: Reports: Arthritis Psychiatric Medical History: Reports: Attention Deficit Hyperactivity Disorder, Bipolar Disorder, Post Traumatic Stress Disorder, Schizoaffective Disorder Past Surgical History Past Surgical History: Reports: Adenoidectomy, Section, Hysterectomy - Partial, Tonsillectomy Social History Information Source: Patient Smoking Status: Unknown if Ever Smoked Frequency of Alcohol Use: None Family History Family History: None, Arthritis, CAD, COPD, CVA, DM, Hyperlipidemia, Hypertension, Malignancy Parental Family History Reviewed: Yes Children Family History Reviewed: Yes Sibling(s) Family History Reviewed.: Yes Medication/Allergy Home Medications: Alprazolam [Xanax 1 mg Tablet] 1 mg PO QID 01/08/12 Lurasidone HCl [Latuda] 80 mg PO DAILY 01/08/12 Metronidazole [Flagyl 500 mg Tablet] 500 mg PO BID 01/08/12 Topiramate [Topamax 100 Mg Tablet] 300 mg PO DAILY 01/08/12 Tramadol HCl [Ultram 50 mg Tablet] 50 mg PO ASDIR PRN #20 tablet 01/08/12 Tramadol HCl [Ultram 50 mg Tablet] 50 mg PO ASDIR PRN #20 tablet 06/05/15 Cyclobenzaprine HCl [Flexeril 10 mg Tablet] 10 mg PO TIDP PRN #20 tablet 07/13/15 Oxycodone HCl/Acetaminophen [Percocet 5-325 mg Tablet] 1 - 2 tab PO Q4H PRN #15 tablet 04/13/16 Ondansetron [Zofran Odt 4 mg Tablet] 1 tab PO Q6H #15 tab.rapdis 05/12/16 Ondansetron [Zofran Odt 4 mg Tablet] 1 - 2 tab PO Q4H PRN #15 tab.rapdis 02/14/17 Epinephrine [Epipen] 0.3 mg IM ASDIR PRN #1 auto.injct 08/12/17 Famotidine [Pepcid 40 mg Tablet] 40 mg PO DAILY #5 tablet 08/12/17 Prednisone [Deltasone 20 mg Tablet] 3 tab PO DAILY 4 Days tablet 08/12/17 Allergies/Adverse Reactions: latex [Latex] Allergy (Unknown, Verified 08/12/17 06:38) Penicillins Allergy (Unknown, Verified 08/12/17 06:38) aripiprazole [From Abilify] Adverse Reaction (Verified 08/12/17 06:38) Liquid Codeine Allergy (Uncoded 08/12/17 06:38) Review of Systems Constitutional: ABSENT: chills, fever(s), headache(s), weight gain, weight loss Eyes: ABSENT: visual disturbances Ears: ABSENT: hearing changes Respiratory: ABSENT: cough, hemoptysis Gastrointestinal: PRESENT: as per HPI Genitourinary: ABSENT: dysuria, hematuria Psychiatric: ABSENT: anxiety, depression, homidical ideation, suicidal ideation Endocrine: ABSENT: cold intolerance, heat intolerance, polydipsia, polyuria Physical Exam Vital Signs: Temp Pulse Resp BP Pulse Ox 98.1 F 97 18 147/108 H 98 05/28/18 00:43 05/28/18 00:43 05/28/18 06:01 05/28/18 06:01 05/28/18 06:01 Intake & Output 05/27/18 05/28/18 05/29/18 06:59 06:59 06:59 Intake Total 1999 Balance 1999 Weight 128.3 kg General appearance: PRESENT: no acute distress Head exam: PRESENT: normocephalic Eye exam: PRESENT: EOMI Mouth exam: PRESENT: dry mucosa Neck exam: PRESENT: full ROM Respiratory exam: PRESENT: clear to auscultation jose Cardiovascular exam: PRESENT: RRR Pulses: PRESENT: normal carotid pulses, normal radial pulses GI/Abdominal exam: PRESENT: other - Tender right upper quadrant with guarding; no umbilical hernia. No groin hernias appreciated. Rectal exam: PRESENT: deferred Extremities exam: PRESENT: full ROM Musculoskeletal exam: PRESENT: full ROM Neurological exam: PRESENT: alert, awake, oriented to person, oriented to place, oriented to time, oriented to situation Psychiatric exam: PRESENT: appropriate affect Results Laboratory Results: 05/28/18 01:30 05/28/18 01:30 05/28/18 05/28/18 05/28/18 01:30 01:30 03:02 WBC 14.2 H RBC 5.07 Hgb 13.5 Hct 40.5 MCV 80 MCH 26.7 L MCHC 33.4 RDW 14.1 H Plt Count 315 Seg Neutrophils % 84.7 H Lymphocytes % 12.0 L Monocytes % 2.9 L Eosinophils % 0.1 Basophils % 0.3 Absolute Neutrophils 12.0 H Absolute Lymphocytes 1.7 Absolute Monocytes 0.4 Absolute Eosinophils 0.0 Absolute Basophils 0.0 Sodium 141.0 Potassium 4.2 Chloride 104 Carbon Dioxide 22 Anion Gap 15 BUN 17 Creatinine 0.76 Est GFR ( Amer) > 60 Est GFR (Non-Af Amer) > 60 Glucose 135 H Calcium 10.7 H Total Bilirubin 0.3 AST 28 ALT 31 Alkaline Phosphatase 97 Total Protein 8.0 Albumin 4.8 Lipase 69.4 Urine Color YELLOW Urine Appearance SLIGHTLY-CLOUDY Urine pH 6.0 Ur Specific [place] 1.028 Urine Protein 30 H Urine Glucose (UA) NEGATIVE Urine Ketones 80 H Urine Blood NEGATIVE Urine Nitrite NEGATIVE Ur Leukocyte Esterase NEGATIVE Urine WBC (Auto) 1 Urine RBC (Auto) 1 Impressions: Abdomen Ultrasound 05/28/18 00:40 IMPRESSION: Cholecystitis. Fatty liver. copyright 2010 [employer]- All Rights Reserved Assessment & Plan - Diagnosis (1) Cholecystitis Is this a current diagnosis for this admission?: Yes Plan: Impression: Exacerbation of chronic cholecystitis with cholelithiasis and morbidly obese white female strong family history of gallbladder disease; leukocytosis present. No evidence of distal biliary tract disease. Recommendations: 1. We will admit, keep n.p.o. and IV fluids and plan for interval laparoscopic possible open cholecystectomy. (2) Cholelithiasis Is this a current diagnosis for this admission?: Yes (3) Chronic back pain Is this a current diagnosis for this admission?: Yes (4) Narcotic dependence Is this a current diagnosis for this admission?: Yes (5) Morbid obesity Is this a current diagnosis for this admission?: Yes (6) Schizoaffective disorder Qualifiers: Schizoaffective disorder type: bipolar Qualified Code(s): F25.0 - Schizoaffective disorder, bipolar type (7) Hypertension Is this a current diagnosis for this admission?: Yes (8) Irritable bowel syndrome Is this a current diagnosis for this admission?: Yes - Time Time Spent: 30 to 50 Minutes Critical Time spent with patient: 15-24 minutes Medications reviewed and adjusted accordingly: Yes Anticipated discharge: Home - Inpatient Certification Based on my medical assessment, after consideration of the patient's comorbidities, presenting symptoms, or acuity I expect that the services needed warrant INPATIENT care.: Yes I certify that my determination is in accordance with my understanding of Medicare's requirements for reasonable and necessary INPATIENT services [42 CFR 412.3e].: Yes Medical Necessity: Need For IV Fluids, Need for Pain Control, Need for IV Antibiotics, Need for Surgery
[2018-05-28] MEDS ORDERED: NORMAL SALINE 1000 ML 1,000 ML IV PRN ×2 (07:23→14:46)
[2018-05-28] MEDS ORDERED: CIPROFLOXACIN 400 MG/D5W RTU 400 MG/200 ML RTUPB IV SCH (10:00)
--- NOTE | 2018-05-28 10:24 | PDOC PROGRESS REPORT ---
Subjective Progress Note for:: 05/28/18 Subjective:: Right upper quadrant abdominal pain Reason For Visit: CHOLECYSTITIS Physical Exam Vital Signs: Temp Pulse Resp BP Pulse Ox 97.9 F 92 17 142/75 H 95 05/28/18 08:16 05/28/18 08:16 05/28/18 08:16 05/28/18 08:16 05/28/18 08:16 Intake & Output 05/27/18 05/28/18 05/29/18 06:59 06:59 06:59 Intake Total 1999 Balance 1999 Weight 128.3 kg 121.3 kg General appearance: PRESENT: no acute distress, cooperative Respiratory exam: PRESENT: clear to auscultation jose Cardiovascular exam: PRESENT: RRR GI/Abdominal exam: PRESENT: other - Soft, nondistended, mild tenderness in the right upper quadrant without peritoneal signs Results Laboratory Results: 05/28/18 01:30 05/28/18 01:30 05/28/18 05/28/18 05/28/18 01:30 01:30 03:02 WBC 14.2 H RBC 5.07 Hgb 13.5 Hct 40.5 MCV 80 MCH 26.7 L MCHC 33.4 RDW 14.1 H Plt Count 315 Seg Neutrophils % 84.7 H Lymphocytes % 12.0 L Monocytes % 2.9 L Eosinophils % 0.1 Basophils % 0.3 Absolute Neutrophils 12.0 H Absolute Lymphocytes 1.7 Absolute Monocytes 0.4 Absolute Eosinophils 0.0 Absolute Basophils 0.0 Sodium 141.0 Potassium 4.2 Chloride 104 Carbon Dioxide 22 Anion Gap 15 BUN 17 Creatinine 0.76 Est GFR ( Amer) > 60 Est GFR (Non-Af Amer) > 60 Glucose 135 H Calcium 10.7 H Total Bilirubin 0.3 AST 28 ALT 31 Alkaline Phosphatase 97 Total Protein 8.0 Albumin 4.8 Lipase 69.4 Urine Color YELLOW Urine Appearance SLIGHTLY-CLOUDY Urine pH 6.0 Ur Specific [place] 1.028 Urine Protein 30 H Urine Glucose (UA) NEGATIVE Urine Ketones 80 H Urine Blood NEGATIVE Urine Nitrite NEGATIVE Ur Leukocyte Esterase NEGATIVE Urine WBC (Auto) 1 Urine RBC (Auto) 1 Impressions: Abdomen Ultrasound 05/28/18 00:40 IMPRESSION: Cholecystitis. Fatty liver. copyright 2010 [employer]- All Rights Reserved Assessment & Plan - Diagnosis (1) Cholecystitis Is this a current diagnosis for this admission?: Yes Plan: Plan laparoscopic cholecystectomy. I discussed with the patient the risk and benefits of the procedure including risk of conversion to an open procedure, infection, bleeding, bile duct and intestinal injury, postcholecystectomy diarrhea. Patient understands and agrees to proceed. Patient likely to have chronic and acute cholecystitis based upon her 2-year history of frequent abdominal pain.
[2018-05-28] MEDS ORDERED: SUCCINYLCHOLINE CHLORIDE INJ 200 MG/10 ML VIAL ONE (11:59)
[2018-05-28] MEDS ORDERED: NEOSTIGMINE METHYLSULFATE 10 MG/10 ML VIAL ONE (11:59)
[2018-05-28] MEDS ORDERED: ROCURONIUM BROMIDE INJ 50 MG/5 ML VIAL IV ONE (11:59)
[2018-05-28] MEDS ORDERED: ACETAMINOPHEN INJ/PF 1000 MG/100 ML SDV IV SCH (12:00)
[2018-05-28] MEDS ORDERED: FENTANYL CITRATE INJ/PF 100 MCG/2 ML AMPUL ONE (12:09)
[2018-05-28] MEDS ORDERED: HYDROMORPHONE HCL INJ/PF 2 MG/ML AMPULE ONE (12:09)
[2018-05-28] MEDS ORDERED: ONDANSETRON HCL INJ/PF 4 MG/2 ML SDV ONE (12:09)
[2018-05-28] MEDS ORDERED: MIDAZOLAM 2 MG/2 ML INJ ONE (12:09)
[2018-05-28] MEDS ORDERED: DEXAMETHASONE SOD PHOSPHATE INJ 4 MG/1 ML VIAL ONE (12:09)
[2018-05-28] MEDS ORDERED: ACETAMINOPHEN 1,000 MG/100 ML RTUPB IV ONE (12:10)
[2018-05-28] MEDS ORDERED: PROPOFOL INJ 200 MG/20 ML VIAL IV ONE (12:10)
[2018-05-28] MEDS ORDERED: BUPIVACAINE HCL 0.25 % INJ/PF (2.5 MG/1 ML) 30 ML VIAL ONE (12:37)
[2018-05-28] MEDS: ACETAMINOPHEN 1,000 MG/100 ML RTUPB IV SCH ×2 (12:43→17:34)
[2018-05-28] MEDS ORDERED: DEXMEDETOMIDINE INJ 80 MCG/20 ML VIAL IV ONE (12:44)
[2018-05-28] MEDS ORDERED: SCOPOLAMINE HYDROBROMIDE 1.5 MG PATCH.TD72 ONE (12:46)
[2018-05-28] MEDS ORDERED: ALBUTEROL SULFATE 0.083% NEB 2.5 MG/3 ML AMPUL NEB ONE (12:46)
[2018-05-28] MEDS ORDERED: FAMOTIDINE INJ/PF 20 MG/2 ML SDV IV ONE (12:46)
[2018-05-28] MEDS ORDERED: METOCLOPRAMIDE HCL INJ/PF 10 MG/2 ML SDV ONE (13:15)
[2018-05-28] MEDS ORDERED: PROMETHAZINE HCL INJ 25 MG/1 ML VIAL IV PRN (14:00)
[2018-05-28] MEDS ORDERED: FENTANYL CITRATE INJ/PF 100 MCG/2 ML AMPUL IV PRN ×3 (14:00)
[2018-05-28] MEDS ORDERED: DIPHENHYDRAMINE HCL 50 MG/ML VIAL IV PRN (14:00)
[2018-05-28] MEDS ORDERED: MEPERIDINE HCL/PF INJ 25 MG/1 ML DISP.SYRIN IV PRN (14:00)
[2018-05-28] MEDS ORDERED: ONDANSETRON HCL INJ/PF 4 MG/2 ML SDV IV PRN (14:46)
[2018-05-28] MEDS ORDERED: MORPHINE SULFATE 10 MG/ML INJ IV PRN (14:46)
--- NOTE | 2018-05-28 14:46 | Operative Report ---
Operative Report DATE OF SURGERY: 05/28/18 PREOPERATIVE DIAGNOSIS: Acute cholecystitis with cholelithiasis POSTOPERATIVE DIAGNOSIS: Same OPERATION: Laparoscopic cholecystectomy SURGEON: LUZMA FALK ANESTHESIA: GA TISSUE REMOVED OR ALTERED: Gallbladder COMPLICATIONS: None ESTIMATED BLOOD LOSS: 20 cc INTRAOPERATIVE FINDINGS: Distended thickened wall gallbladder. PROCEDURE: Informed consent was obtained. Patient was brought to the operating room placed operating table in supine position. After satisfactory induction of general anesthesia, patient's abdomen was prepped and draped in usual sterile fashion. A supraumbilical midline incision was made and dissection carried down to the fascia the peritoneal cavity entered without difficulty. Finney trocar was inserted. Pneumoperitoneum produced good patient toleration. 5 mm trocar was placed in the subxiphoid location.Two 5 mm trochars were placed in the right subcostal location. The liver appeared normal. The gallbladder appeared distended and its wall thickened. The gallbladder was grasped and retracted cephalad over the dome of the liver. The infundibulum of the gallbladder was grasped retracted laterally and inferiorly thus exposing calot's triangle. The cystic duct gallbladder junction was clearly identified and the cystic duct was clipped and divided. Cystic artery was likewise taken. The gallbladder was taken off the gallbladder bed using the hook electrocautery technique. The gallbladder was removed with an Endobag through the Finney trocar site fascial defect. There was some bleeding during the dissection of the gallbladder bed which was controlled with electrocautery. The operative field was irrigated and irrigant aspirated out. Irrigation fluid was perfectly clear at the end of the case. Hemostasis appeared excellent. All trochars were removed under the direct vision a laparoscope to ensure hemostasis. The Finney trocar site fascial defect was closed with interrupted Vicryl sutures. All skin incisions were closed with subcuticular interrupted Monocryl sutures. Marcaine was in jected at the port sites. Patient tolerated procedure well no apparent complications and was taken to the recovery area in stable condition.
[2018-05-28] MEDS ORDERED: KETOROLAC TROMETHAMINE INJ/PF 30 MG/1 ML SDV ONE (14:57)
[2018-05-28] MEDS: CYCLOBENZAPRINE HCL 10 MG TABLET PO PRN (20:22)
[2018-05-28] MEDS: OXYCODONE-ACETAMINOPHEN 5-325 MG TABLET PO PRN (21:12)
[2018-05-28] MEDS ORDERED: MELATONIN 5 MG TABLET PO SCH (22:00)
[2018-05-29] MEDS: ACETAMINOPHEN 1,000 MG/100 ML RTUPB IV SCH ×4 (01:24→18:57)
[2018-05-29] MEDS: CYCLOBENZAPRINE HCL 10 MG TABLET PO PRN (05:56)
[2018-05-29] MEDS: OXYCODONE-ACETAMINOPHEN 5-325 MG TABLET PO PRN ×2 (05:56→11:10)
[2018-05-29 07:53] LABS: ABSOLUTE LYMPHOCYTES (AUTO) 2.2 10^3/uL (0.5-4.7); ABSOLUTE MONOCYTES (AUTO) 0.7 10^3/uL (0.1-1.4); ABSOLUTE NEUT (AUTO) 8.5 10^3/uL (1.7-8.2); BASOPHILS % (AUTO) 0.2 % (0-2); EOSINOPHILS % (AUTO) 0.1 % (0-6); HEMATOCRIT 36.7 % (36.0-47.0); HEMOGLOBIN 12.1 g/dL (12.0-15.5); LYMPHOCYTES % (AUTO) 19.3 % (13-45); MEAN CORPUSCULAR HEMOGLOBIN 26.3 pg (27.0-33.4); MEAN CORPUSCULAR VOLUME 80 fl (80-97); PLATELET COUNT 231 10^3/uL (150-450); RED BLOOD COUNT 4.61 10^6/uL (3.72-5.28); RED CELL DISTRIBUTION WIDTH 14.3 % (11.5-14.0); SEGMENTED NEUTROPHILS % (AUTO) 74.4 % (42-78); TOTAL CELLS COUNTED % (AUTO) 100 %; WHITE BLOOD COUNT 11.4 10^3/uL (4.0-10.5)
[2018-05-29 08:13] LABS: ALANINE AMINOTRANSFERASE 50 U/L (9-52); ALBUMIN 3.9 g/dL (3.5-5.0); ALKALINE PHOSPHATASE 78 U/L (38-126); ANION GAP 10 (5-19); ASPARTATE AMINO TRANSFERASE 38 U/L (14-36); BILIRUBIN,DIRECT 0.1 mg/dL (0.0-0.4); BILIRUBIN,TOTAL 0.4 mg/dL (0.2-1.3); BLOOD UREA NITROGEN 16 mg/dL (7-20); CALCIUM 9.5 mg/dL (8.4-10.2); CARBON DIOXIDE 23 mmol/L (22-30); CHLORIDE 105 mmol/L (98-107); GLUCOSE 99 mg/dL (75-110); POTASSIUM 3.9 mmol/L (3.6-5.0); SODIUM 137.8 mmol/L (137-145); TOTAL PROTEIN 6.5 g/dL (6.3-8.2)
[2018-05-29] MEDS ORDERED: DOCUSATE SODIUM 100 MG CAPSULE PO SCH (18:00)
--- NOTE | 2018-05-29 18:58 | PDOC DISCHARGE SUMMARY ---
General - Admit/Disc Date/PCP Admission Date/Primary Care Provider: 05/28/18 06:23 Discharge Date: 05/29/18 - Additional Information Resuscitation Status: Full Code Home Medications: Cyclobenzaprine HCl [Flexeril 10 mg Tablet] 10 mg PO TIDP PRN 05/28/18 Oxycodone HCl/Acetaminophen [Percocet 5-325 mg Tablet] 1 tab PO BIDP PRN 05/28/18 History of Present Illness History of Present Illness: FRANCA LARSON is a 42 year old female admitted with cholecystitis. She was taken to the operating room for definitive surgical care. Hospital Course Hospital Course: The patient was admitted and taken to the operating room for cholecystectomy. This was successful. She was sent to the floor in stable condition. On the floor, she began ambulating, tolerating a liquid diet, and taking oral pain medications. By 05/29/2018, the patient was doing well. She was started on a regular diet and tolerated this well. At this time it is felt that she has reached maximal hospital benefit, and is fit for discharge. Physical Exam Vital Signs: Temp Pulse Resp BP Pulse Ox 98.2 F 88 15 148/86 H 99 05/29/18 15:21 05/29/18 15:21 05/29/18 15:21 05/29/18 15:21 05/29/18 15:21 Intake & Output 05/28/18 05/29/18 05/30/18 06:59 06:59 06:59 Intake Total 1999 4495 100 Output Total 910 Balance 1999 3585 100 Weight 128.3 kg 121 kg Results Laboratory Results: 05/29/18 07:29 05/29/18 07:29 05/29/18 05/29/18 07:29 07:29 WBC 11.4 H RBC 4.61 Hgb 12.1 Hct 36.7 MCV 80 MCH 26.3 L MCHC 33.0 RDW 14.3 H Plt Count 231 Seg Neutrophils % 74.4 Lymphocytes % 19.3 Monocytes % 6.0 Eosinophils % 0.1 Basophils % 0.2 Absolute Neutrophils 8.5 H Absolute Lymphocytes 2.2 Absolute Monocytes 0.7 Absolute Eosinophils 0.0 Absolute Basophils 0.0 Sodium 137.8 Potassium 3.9 Chloride 105 Carbon Dioxide 23 Anion Gap 10 BUN 16 Creatinine 0.68 Est GFR ( Amer) > 60 Est GFR (Non-Af Amer) > 60 Glucose 99 Calcium 9.5 Total Bilirubin 0.4 AST 38 H ALT 50 Alkaline Phosphatase 78 Total Protein 6.5 Albumin 3.9 05/28/18 03:02 Clean Catch Midstream Urine Culture - Final Mixed Urogenital Luna Impressions: Abdomen Ultrasound 05/28/18 00:40 IMPRESSION: Cholecystitis. Fatty liver. copyright 2010 [employer]- All Rights Reserved Qualifiers - * PATIENT BEING DISCHARGED WITH ANY OF THE FOLLOWING DIAGNOSIS: No Plan Discharge Plan: Discharge home. Diet as tolerated. Activity: No lifting greater than 10 pounds x 2 weeks. Follow-up with [facility] in 7-10 days. [place] 5/325 mg p.o. every 6 hours as needed for pain. Okay to shower starting tomorrow. Colace/stool softener for constipation.
[2018-05-29 19:37] VITALS: BP 142/75
== END 2018-05-29 19:55 | disposition home or self-care (01) ==
LOC: ER 00:26 → EH 06:23 → 5 08:10
PROVIDERS: ATTEND Surgery
PROC: 0FT44ZZ Resection of Gallbladder, Percutaneous Endoscopic Approach (ICD-10-PCS; principal; 2018-05-28 12:00)
DX: K80.10 Calculus of gallbladder with chronic cholecystitis without obstruction (principal); K76.0 Fatty (change of) liver, not elsewhere classified; G89.4 Chronic pain syndrome; M54.5 Low back pain; F11.20 Opioid dependence, uncomplicated; E66.01 Morbid (severe) obesity due to excess calories; F25.0 Schizoaffective disorder, bipolar type; I10 Essential (primary) hypertension; K58.9 Irritable bowel syndrome, unspecified; Z86.010 Personal history of colon polyps; Z85.41 Personal history of malignant neoplasm of cervix uteri; Z90.710 Acquired absence of both cervix and uterus; Z79.899 Other long term (current) drug therapy; Z83.79 Family history of other diseases of the digestive system; Z87.442 Personal history of urinary calculi
CPT/HCPCS: 96376; 99285; 96361; 96375; 96365; 36415 ×2; 87040; 87086; 84702; 83690; 85025 ×2; 80053 ×2; 81001; 88304 ×2; 76705; 93976; 47562; G0378 ×3; J0743; J2250; J3490 ×7; J1100; J3010; J1885; J2765; J2270; J1170; J2550; J0330; J2405; S0020; J7030; J7120; J2704; J0744; S0028; J0131 ×2; 790

== ENCOUNTER 2018-06-07 09:42 | Emergency (ER) | payer MEDICAID ==
[2018-06-07] MEDS ORDERED: CLINDAMYCIN 600 MG/D5W RTU 600 MG/50 ML RTUPB IV ONE (09:58)
--- NOTE | 2018-06-07 10:01 | ER Document Report ---
ED Medical Screen (RME) - General Chief Complaint: Facial Swelling Stated Complaint: FACIAL SWELLING Time Seen by Provider: 06/07/18 09:55 Mode of Arrival: Ambulatory Information source: Patient Notes: Patient is a 42-year-old female who presents to the emergency department straight from her dentist office for concerns of a left sided facial abscess. Patient reports the swelling began this morning. She denies any fever. Exam: Significant swelling to left lower side of face. Patient speaking in full and complete sentences, able to swallow without difficulty. I have greeted and performed a rapid initial assessment of this patient. A comprehensive ED assessment and evaluation of the patient, analysis of test results and completion of the medical decision making process will be conducted by additional ED providers. Dictation of this chart was performed using voice recognition software; therefore, there may be some unintended grammatical errors. TRAVEL OUTSIDE OF THE [place] IN LAST 30 DAYS: No - Related Data Allergies/Adverse Reactions: latex [Latex] Allergy (Unknown, Verified 08/12/17 06:38) Penicillins Allergy (Unknown, Verified 08/12/17 06:38) hydrocodone Allergy (Verified 06/07/18 09:44) aripiprazole [From Abilify] Adverse Reaction (Verified 08/12/17 06:38) Liquid Codeine Allergy (Uncoded 08/12/17 06:38) Past Medical History Pulmonary Medical History: Reports: Hx Asthma Neurological Medical History: Reports: Hx Seizures - as a child Renal/ Medical History: Reports: Hx Kidney Stones, Hx Ovarian Cysts. Denies: Hx Peritoneal Dialysis Malignancy Medical History: Reports: Hx Cervical Cancer - Precervical cancer GI Medical History: Reports: Hx Irritable Bowel Musculoskeltal Medical History: Reports Hx Arthritis, Reports Hx Musculoskeletal Trauma Psychiatric Medical History: Reports: Hx Anxiety, Hx Attention Deficit Hyperactivity Disorder, Hx Bipolar Disorder, Hx Post Traumatic Stress Disorder, Hx Schizoaffective Disorder Denies: Hx Depression Traumatic Medical History: Reports: Hx Fractures - Left foot Past Surgical History: Reports: Hx Adenoidectomy, Hx Section, Hx Hysterectomy - Partial, Hx Myringotomy, Hx Oral Surgery, Hx Tonsillectomy - Immunizations Hx Diphtheria, Pertussis, Tetanus Vaccination: No Physical Exam - Vital signs Vitals: Temp Pulse Resp BP Pulse Ox 98.6 F 120 H 15 145/92 H 96 06/07/18 09:50 06/07/18 09:50 06/07/18 09:50 06/07/18 09:50 06/07/18 09:50 Course - Vital Signs Vital signs: Temp Pulse Resp BP Pulse Ox 98.6 F 120 H 15 145/92 H 96 06/07/18 09:50 06/07/18 09:50 06/07/18 09:50 06/07/18 09:50 06/07/18 09:50
[2018-06-07] MEDS ORDERED: KETOROLAC TROMETHAMINE INJ/PF 30 MG/1 ML SDV IV ONE (10:04)
[2018-06-07 10:35] LABS: ABSOLUTE BASOPHILS # (AUTO) 0.1 10^3/uL (0.0-0.2); ABSOLUTE EOSINOPHILS # (AUTO) 0.2 10^3/uL (0.0-0.6); ABSOLUTE LYMPHOCYTES (AUTO) 1.7 10^3/uL (0.5-4.7); ABSOLUTE NEUT (AUTO) 12.8 10^3/uL (1.7-8.2); BASOPHILS % (AUTO) 0.5 % (0-2); HEMATOCRIT 43.2 % (36.0-47.0); HEMOGLOBIN 14.3 g/dL (12.0-15.5); LYMPHOCYTES % (AUTO) 10.8 % (13-45); MEAN CORPUSCULAR HEMOGLOBIN 26.6 pg (27.0-33.4); MEAN CORPUSCULAR HGB CONC 33.1 g/dL (32.0-36.0); MEAN CORPUSCULAR VOLUME 80 fl (80-97); MONOCYTES % (AUTO) 6.1 % (3-13); PLATELET COUNT 277 10^3/uL (150-450); RED BLOOD COUNT 5.38 10^6/uL (3.72-5.28); RED CELL DISTRIBUTION WIDTH 13.9 % (11.5-14.0); SEGMENTED NEUTROPHILS % (AUTO) 81.6 % (42-78); TOTAL CELLS COUNTED % (AUTO) 100 %; WHITE BLOOD COUNT 15.7 10^3/uL (4.0-10.5)
--- NOTE | 2018-06-07 11:17 | RADIOLOGY REPORT (SQ) ---
EXAM DESCRIPTION: CT FACIAL AREA WITH COMPLETED DATE/TIME: 06/07/2018 11:03 am REASON FOR STUDY: eval for left facial abscess COMPARISON: None. TECHNIQUE: Post contrast images through the facial bones and orbits windowed for bone and soft tissu e. Additional coronal and sagittal reconstructed images reviewed. All images stored on PACS. All CT scanners at this facility use dose modulation, iterative reconstruction, and/or weight based d osing when appropriate to reduce radiation dose to as low as reasonably achievable (ALARA). [facility]: Dose Right [facility]: CareDose [facility]: Dose Right [facility]: Teradose 4D [facility]: Mobile Multimedia CONTRAST TYPE AND DOSE: contrast/concentration: Isovue 350.00 mg/ml; Total Contrast Delivered: 75.0 ml; Total Saline Delivered: 50.0 ml RENAL FUNCTION: Creatinine 0.7 RADIATION DOSE: CT Rad equipment meets quality standard of care and radiation dose reduction techniq ues were employed. CTDIvol: 30.4 mGy. DLP: 600 mGy-cm. . LIMITATIONS: None. FINDINGS: There is superficial facial cellulitis over the left alveolar ridge of the mandible. Milagro ent has a left lower 2nd incisor with dental caries and a periapical tooth root abscess on coronal im age 18. No discrete buccal abscess is seen adjacent to the tooth root. No floor of mouth abscess is identified. Changes are best shown on axial images 16 through 24. FACIAL BONES: No fracture or bone lesion. ORBITS: Intact. No fracture. Symmetric intact globes and retroorbital soft tissues. PARANASAL SINUSES: Clear. No significant mucosal thickening, mass or fluid. No nasal polyps. Maxilla ry sinus outlets are patent. SOFT TISSUES: No mass or edema. No abnormal enhancement. INFERIOR BRAIN: Limited view. No acute findings. OTHER: No other significant finding. IMPRESSION: Facial cellulitis without abscess TECHNICAL DOCUMENTATION: JOB ID: [id number] Quality ID # [id number]: Final reports with documentation of one or more dose reduction techniques (e.g., Au tomated exposure control, adjustment of the mA and/or kV according to patient size, use of iterative reconstruction technique) 2010 [employer]- All Rights Reserved Reading location - IP/workstation name: [email or web address]
[2018-06-07 11:52] LABS: ALANINE AMINOTRANSFERASE 30 U/L (9-52); ALBUMIN 4.3 g/dL (3.5-5.0); ALKALINE PHOSPHATASE 105 U/L (38-126); ANION GAP 10 (5-19); ASPARTATE AMINO TRANSFERASE 16 U/L (14-36); BILIRUBIN,DIRECT 0.3 mg/dL (0.0-0.4); BILIRUBIN,TOTAL 0.3 mg/dL (0.2-1.3); BLOOD UREA NITROGEN 8 mg/dL (7-20); CALCIUM 10.1 mg/dL (8.4-10.2); CARBON DIOXIDE 27 mmol/L (22-30); CHLORIDE 100 mmol/L (98-107); GLUCOSE 114 mg/dL (75-110); POTASSIUM 4.3 mmol/L (3.6-5.0); SODIUM 136.9 mmol/L (137-145); TOTAL PROTEIN 7.5 g/dL (6.3-8.2)
[2018-06-07] MEDS ORDERED: MORPHINE SULFATE 10 MG/ML INJ IV ONE (11:54)
[2018-06-07] MEDS ORDERED: ONDANSETRON HCL INJ/PF 4 MG/2 ML SDV IV ONE (11:54)
[2018-06-07] MEDS ORDERED: DEXAMETHASONE SOD PHOS INJ 10 MG/1 ML VIAL IV ONE (11:55)
--- NOTE | 2018-06-07 13:20 | ER Document Report ---
ED ENT - General Chief Complaint: Facial Swelling Stated Complaint: FACIAL SWELLING Time Seen by Provider: 06/07/18 09:55 Primary Care Provider: TALIA MAGAÑA FNP [Primary Care Provider] - Follow up as needed Mode of Arrival: Ambulatory Notes: Patient is a 42-year-old female who was sent to the emergency room by her dentist when she arrived here today having left lower swollen jaw that extended from the mid powers on the left side all the way around to the angle of the jaw. Patient states that she woke up with us this morning. She was supposed to have her dental work done last week but she ended up coming into the emergency room here and having emergency gallbladder surgery. This delayed her dental surgery until today but when she got there was unable to have it secondary to swelling which the dentist thought was an abscess presentation that is why he sent her to the ER for a CT of the face and IV antibiotics. Patient complains of severe discomfort and pain. She has been taking her regular pain medications that she has for chronic pain on a regular basis but it is not helping. She is afraid to overextend herself and therefore be out of medications totally that is her secondary concern. TRAVEL OUTSIDE OF THE [place] IN LAST 30 DAYS: No - HPI Patient complains to provider of: Dental problem Onset: This morning Onset/Duration: Sudden Quality of pain: Achy, Sharp, Stabbing Severity: Moderate Pain Level: 4 Location of pain: Face, Tooth Associated symptoms: None Similar symptoms previously: No Recently seen / treated by doctor: Yes - Related Data Allergies/Adverse Reactions: latex [Latex] Allergy (Unknown, Verified 08/12/17 06:38) Penicillins Allergy (Unknown, Verified 08/12/17 06:38) hydrocodone Allergy (Verified 06/07/18 09:44) aripiprazole [From Abilify] Adverse Reaction (Verified 08/12/17 06:38) Liquid Codeine Allergy (Uncoded 08/12/17 06:38) Past Medical History - General Information source: Patient - Social History Smoking Status: Unknown if Ever Smoked Cigarette use (# per day): No Chew tobacco use (# tins/day): No Smoking Education Provided: No Frequency of alcohol use: None Drug Abuse: None Lives with: Family Family History: Reviewed & Not Pertinent, Arthritis, CAD, COPD, CVA, DM, Hyperlipidemia, Hypertension, Malignancy Patient has suicidal ideation: No Patient has homicidal ideation: No Pulmonary Medical History: Reports: Hx Asthma Neurological Medical History: Reports: Hx Seizures - as a child Renal/ Medical History: Reports: Hx Kidney Stones, Hx Ovarian Cysts. Denies: Hx Peritoneal Dialysis Malignancy Medical History: Reports: Hx Cervical Cancer - Precervical cancer GI Medical History: Reports: Hx Irritable Bowel Musculoskeletal Medical History: Reports Hx Arthritis, Reports Hx Musculoskeletal Trauma Psychiatric Medical History: Reports: Hx Anxiety, Hx Attention Deficit Hyperact ivity Disorder, Hx Bipolar Disorder, Hx Post Traumatic Stress Disorder, Hx Schizoaffective Disorder Denies: Hx Depression Traumatic Medical History: Reports: Hx Fractures - Left foot Past Surgical History: Reports: Hx Adenoidectomy, Hx Section, Hx Cholecystectomy - May 2018, Hx Hysterectomy, Hx Myringotomy, Hx Oral Surgery, Hx Tonsillectomy - Immunizations Hx Diphtheria, Pertussis, Tetanus Vaccination: No Review of Systems - Review of Systems Constitutional: No symptoms reported EENT: Mouth swelling, Dental problem Cardiovascular: No symptoms reported Respiratory: No symptoms reported Gastrointestinal: No symptoms reported Genitourinary: No symptoms reported Female Genitourinary: No symptoms reported Musculoskeletal: No symptoms reported Skin: No symptoms reported Hematologic/Lymphatic: No symptoms reported Neurological/Psychological: No symptoms reported -: Yes All other systems reviewed and negative Physical Exam - Vital signs Vitals: Temp Pulse Resp BP Pulse Ox 98.6 F 120 H 15 145/92 H 96 06/07/18 09:50 06/07/18 09:50 06/07/18 09:50 06/07/18 09:50 06/07/18 09:50 Interpretation: Hypertensive, Tachycardic Notes: PHYSICAL EXAMINATION: GENERAL: Well-appearing, well-nourished and in no acute distress. HEAD: Atraumatic, normocephalic. EYES: Pupils equal round and reactive to light, extraocular movements intact, conjunctiva are normal. ENT: Examination patient's oral cavity shows that she has most of her teeth already removed and healed gums. She has 3 teeth on the left bottom are still p resent with one being decayed. It also has surrounding gum tissue that is inflamed and angry appearing. There is some minor discharge when pressure placed upon the tube but does have some pus coming out of the base of the tooth. The rest of the oral cavity appears to be normal with normal gum tissue that is very healthy looking. NECK: Normal range of motion, supple without lymphadenopathy LUNGS: Breath sounds clear to auscultation bilaterally and equal. No wheezes rales or rhonchi. HEART: Regular rate and rhythm without murmurs ABDOMEN: Soft, nontender, nondistended abdomen. No guarding, no rebound. No masses appreciated. Female : deferred Musculoskeletal: Normal range of motion, no pitting or edema. No cyanosis. NEUROLOGICAL: Cranial nerves grossly intact. Normal speech, normal gait. Normal sensory, motor exams PSYCH: Normal mood, normal affect. SKIN: Warm, Dry, normal turgor, no rashes or lesions noted. - Notes Notes: PHYSICAL EXAMINATION: GENERAL: Patient is a 42-year-old morbidly obese female who on physical exam today is in no apparent distress but is in apparent discomfort. HEAD: normocephalic. Visual inspection of patient's face shows that there is a moderate amount of swelling on the left side of her face and lower jawline. The swelling extends from the mid chin around the left to the angle of the jaw. Pa lpation of the area shows it to be somewhat firm nonfluctuant and tender. There is some mild erythema noticed along the jawline itself. EYES: Pupils equal round and reactive to light, extraocular movements intact, conjunctiva are normal. ENT: Examination head and upper airway show nasal mucosa to be normal in appearance no frontal maxillary sinus tenderness to palpation with the exception of the left side some mild tenderness to the maxillary sinuses. Termination of the ears bilaterally are normal. There are TMs are normal in appearance as well with no bulging or retraction no air-fluid levels noted. Examination of the oral cavity shows patient is missing all 3 teeth was 3 teeth on the lower left jaw and are the ones causing the problem today. Patient is most back to is the lower incisor and it is decayed. The gumline there is very erythematous with noticeable exudate when pressure applied to the tooth. There is also very sensitive to touch. Again noted is the swelling of the external portion of the jaw which is nonfluctuant. Palpation of this area feels mostly like inflamed tissue not abscess. NECK: Normal range of motion, supple without lymphadenopathy LUNGS: Breath sounds clear to auscultation bilaterally and equal. No wheezes rales or rhonchi. HEART: Regular rate and rhythm without murmurs ABDOMEN: Soft, nontender, nondistended abdomen. No guarding, no rebound. No masses appreciated. Female : deferred Musculoskeletal: Normal range of motion, no pitting or edema. No cyanosis. NEUROLOGICAL: Normal speech, normal gait. Normal sensory, motor exams PSYCH: Normal mood, normal affect. SKIN: Warm, Dry, normal turgor, no rashes or lesions noted. Course - Re-evaluation Re-evalutation: 06/07/18 13:[address] came back negative for abscess but did show some fairly extensive soft tissue swelling. I did contact her pain management provider who was Ishmael Diaz who called me back and I explained to her medical needs she was down to having 4 Percocet left and she is due to see this provider on Sunday and I did feel that it was a truly medical need at this time for her to have the pain medications. This provider at the pain management center in the [place] okayed that to happen. #2 the clinic is [phone]. Patient was also given a shot of Decadron IV clindamycin IV and some Toradol IV. She already had a reduction in swelling from just a short time she is been here. So at this point we will not add any further steroids to it she will take ibuprofen on top of her pain medication. 06/07/18 13:38 I checked patient on [facility] aware drug line. Patient is in chronic pain management which she was upfront and told me about start with she is rec eiving 60 oxycodone 5 mg every month for chronic pain. The patient is run into a barrier because she is at the end of her pain medications and in the past week she had emergency gallbladder surgery here at the hospital and today she was sent in by dentist for swelling of the left side of her face which is very evident and most likely very painful so I contacted her pain management person as stated above and they have agreed that I can give her 10 more pills. She does not appear to be drug seeking from the [facility] aware she seems to be pretty steady with organization so at this time we will provide her with those 10 pills and she will follow-up with them on Sunday as scheduled. I did have a talk with her about addiction and about the possibilities of that happening to her on any given time with this medication and she voiced awareness of the situation but elects to take it anyway. - Vital Signs Vital signs: Temp Pulse Resp BP Pulse Ox 99.0 F 97 20 139/74 H 96 06/07/18 13:59 06/07/18 13:59 06/07/18 13:59 06/07/18 13:59 06/07/18 09:50 - Laboratory Result Diagrams: 06/07/18 10:10 06/07/18 11:25 Laboratory results interpreted by me: 06/07/18 06/07/18 10:10 11:25 WBC 15.7 H RBC 5.38 H MCH 26.6 L Seg Neutrophils % 81.6 H Lymphocytes % 10.8 L Absolute Neutrophils 12.8 H Sodium 136.9 L Glucose 114 H Discharge - Discharge Clinical Impression: Infected dental caries Condition: Good Disposition: HOME, SELF-CARE Instructions: Dental Infection or Abscess ([facility]) Additional Instructions: Home medications prescribed. Complete all of your antibiotics. I had contacted your pain management provider Nick Joe and she is agreed to give you 10 pills until Sunday when you see her. I am also writing you for the Diflucan you have been given a prescription for clindamycin 300 every 6 hours for 7 days you have 28tablets please take all of that medication as given to you by the dentist. Over the weekend should you have any concerns or problems with the swelling is worse or he spike a fever return to ER for recheck. Prescriptions: Fluconazole [Diflucan] 150 mg PO ONCE PRN #1 tablet PRN Reason: Oxycodone HCl/Acetaminophen [Percocet 5-325 mg Tablet] 1 tab PO Q4H PRN #10 tablet PRN Reason: Referrals: TALIA MAGAÑA FNP [Primary Care Provider] - Follow up as needed
[2018-06-07 14:01] VITALS: BP 139/74
== END 2018-06-07 14:02 | disposition home or self-care (01) ==
LOC: ER 09:42
DX: K04.7 Periapical abscess without sinus (principal); K02.9 Dental caries, unspecified; K08.409 Partial loss of teeth, unspecified cause, unspecified class; R22.0 Localized swelling, mass and lump, head; E66.01 Morbid (severe) obesity due to excess calories; J45.909 Unspecified asthma, uncomplicated; G89.29 Other chronic pain; Z79.891 Long term (current) use of opiate analgesic; Z91.040 Latex allergy status; Z88.0 Allergy status to penicillin; Z88.5 Allergy status to narcotic agent
CPT/HCPCS: 36415; 87040; 85025; 80053; 70487; S0077; J1885; J2270; J2405; J1100

== ENCOUNTER → 2018-10-31 | Outpatient (CLI) | payer MEDICAID ==
--- NOTE | 2018-11-11 11:05 | WOMENS IMAGING REPORT ---
EXAM DESCRIPTION: BILAT DIAGNOSTIC MAMMO W/CAD; U/S BREAST UNILATERAL, COMPL COMPLETED DATE/TIME: 10/31/2018 11:31 am; 10/31/2018 12:08 pm REASON FOR STUDY: N63.10 DX MAMMO; N63.10 RIGHT BREAST N63.10 UNSPECIFIED LUMP IN THE RIGHT BREAST, UNSPECIFIED MARIANNA COMPARISON: 06/15/2008 EXAM PARAMETERS: Standard craniocaudal and mediolateral oblique views of each breast recorded using digital acquisition. Additional right breast 90 mediolateral view, right breast cone compression in the MLO and CC orient ations. Right breast ultrasound was also performed. Read with the assistance of CAD: .[employer] Version 9.2 LIMITATIONS: None. FINDINGS: RIGHT BREAST MASSES: Benign oil cysts are present in the right breast retroareolar region by mammography, with per ipheral rim calcification. This correlates with the palpable abnormality indicated by the patient CALCIFICATIONS: No new or suspicious calcifications. ARCHITECTURAL DISTORTION: None. DEVELOPING DENSITY: None. ASYMMETRY: None noted. OTHER: No other significant findings. LEFT BREAST MASSES: No suspicious masses. CALCIFICATIONS: No new or suspicious calcifications. ARCHITECTURAL DISTORTION: None. DEVELOPING DENSITY: None. ASYMMETRY: None noted. OTHER: No other significant finding. Right breast ultrasound: Patient presents with a palpable abnormality in the right breast retroareolar region. A well-circums cribed anechoic cyst is present, 14 mm in diameter. This correlates with a benign oil cyst on mammog flory in the retroareolar region, is a benign finding which requires no further specific followup. O ther smaller less than 5 mm oil cysts are present in the right retroareolar region, benign. IMPRESSION: No mammographic or sonographic evidence for malignancy right breast. No mammographic ev idence for malignancy left breast. Palpable abnormality on the right retroareolar region correlates with retroareolar oil cysts, benign BREAST DENSITY: a. The breasts are almost entirely fatty. BIRAD: ASSESSMENT: 2 Benign findings. RECOMMENDATION: RECOMMENDED FOLLOW UP: Please continue yearly bilateral screening mammography in Oct SPECIFIC INTERVENTION/IMAGING/CONSULTATION RECOMMENDED:No additional intervention/ imaging/consultati on needed at this time. COMMUNICATION:Patient notified by letter COMMENT: The patient has been notified of the results by letter per MQSA requirements. Additional no tification policies are in place for contacting patient with suspicious or incomplete findings. Quality ID #[id number]: The [employer] recommends an annual screening mammogram for women aged 40 years or over. This facility utilizes a reminder system to ensure that all patients receive reminder letters, and/or direct phone calls for appointments. This includes reminders for routine scr eening mammograms, diagnostic mammograms, or other Breast Imaging Interventions when appropriate. Th is patient will be placed in the appropriate reminder system. TECHNICAL DOCUMENTATION: FINDING NUMBER: (1) ASSESSMENT: (1) JOB ID: [id number] [employer] All Rights Reserved Reading location - IP/workstation name: [email or web address]
== END ==
LOC: WI 10:30
PROVIDERS: ATTEND Physician Assistant Medical
DX: N60.01 Solitary cyst of right breast (principal)
CPT/HCPCS: 76641; 77066